=== PATIENT | female | born 1945 | race Caucasian/White ===

== ENCOUNTER → 2017-07-26 08:57 | Outpatient (CLI) | payer OTHER, SELFPAY ==
[2017-07-26 09:56] LABS: Calcium 8.8 mg/dL (8.4-10.2); Phosphorous 3.4 mg/dL (2.8-4.1)
[2017-07-26 10:19] LABS: Vitamin D 25 Hydroxy (D3) 34.4 ng/mL (30.0-100.0)
[2017-07-26 10:36] LABS: Thyroid Stimulating Hormone 0.17 uIU/mL (0.47-4.68)
== END ==
PROVIDERS: PCP Internal Medicine; Visit Provider Nurse Practitioner
DX: E03.9 Hypothyroidism, unspecified (principal); M81.0 Age-related osteoporosis without current pathological fracture
CPT/HCPCS: 36415; 82306; 82310; 84100; 84439; 84443

== ENCOUNTER → 2018-08-02 14:16 | Outpatient (CLI) | payer OTHER, SELFPAY ==
--- NOTE | 2018-08-02 14:20 | DI.RAD.S_ITS ---
PROCEDURE: XR HIP W PEL IF DONE RT 2V INDICATIONS: RIGHT HIP PAIN TECHNIQUE: 2 views of the hip were acquired. COMPARISON: None. FINDINGS: Bones: No fractures or dislocations. No suspicious bony lesions. The visualized pelvic ring appears intact. There is moderate right sacroiliac joint degeneration and mild right acetabular femoral joint degeneration. Soft tissues: No suspicious soft tissue calcifications or masses. IMPRESSION: Degenerative joint disease, moderate at the right sacroiliac joint and mild at the right acetabular femoral joint. Dictated by: Enedina Fuentes M.D. on 08/02/2018 at 16:51 Approved by: Enedina Fuentes M.D. on 08/02/2018 at 21:46
--- NOTE | 2018-08-02 14:22 | DI.RAD.S_ITS ---
PROCEDURE: XR CHEST 2V INDICATIONS: COUGH TECHNIQUE: 2 views of the chest were acquired. COMPARISON: None. FINDINGS: Surgical changes and devices: None. Lungs and pleura: Mild patchy infiltrate in right upper lobe. No pleural effusions or pneumothorax. Mediastinum: Mediastinal contours are normal. Heart size is normal. Bones and chest wall: No suspicious bony abnormalities. Soft tissues appear unremarkable. IMPRESSION: Mild patchy infiltrate in the right upper lobe suspicious for pneumonia. Dictated by: Enedina Fuentes M.D. on 08/02/2018 at 16:38 Approved by: Enedina Fuentes M.D. on 08/02/2018 at 16:39
== END ==
PROVIDERS: PCP Internal Medicine; Visit Provider Internal Medicine
DX: R05 Cough (principal); R91.8 Other nonspecific abnormal finding of lung field; M25.551 Pain in right hip; M16.11 Unilateral primary osteoarthritis, right hip; M47.818 Spondylosis without myelopathy or radiculopathy, sacral and sacrococcygeal region
CPT/HCPCS: 71046; 73502

== ENCOUNTER → 2018-08-03 07:14 | Outpatient (CLI) | payer OTHER, SELFPAY ==
[2018-08-03 09:38] LABS: Blood Urea Nitrogen 9 mg/dL (7-17); Calcium 8.4 mg/dL (8.4-10.2); Carbon Dioxide 27 mmol/L (22-32); Chloride 100 mmol/L (98-107); Cholesterol 145 mg/dL (140-199); Estimated Glomerular Filt Rate > 60.0 mL/min (>60); Glucose 94 mg/dL (80-110); HDL Cholesterol 51 mg/dL (40-60); HEMOLYSIS < 15 (0-50); LDL Cholesterol Calculated 75 mg/dL (<100); Potassium 4.6 mmol/L (3.4-5.1); Sodium 136 mmol/L (137-145); Triglycerides 96 mg/dL (35-150)
[2018-08-03 10:21] LABS: Vitamin B12 876 pg/mL (239-931)
== END ==
PROVIDERS: PCP Internal Medicine; Visit Provider Internal Medicine
DX: E53.8 Deficiency of other specified B group vitamins (principal); Z13.1 Encounter for screening for diabetes mellitus; Z13.220 Encounter for screening for lipoid disorders
CPT/HCPCS: 36415; 80048; 80061; 82607

== ENCOUNTER → 2018-11-14 09:42 | Outpatient (CLI) | payer OTHER, SELFPAY ==
[2018-11-14 11:00] LABS: BUN Creatinine Ratio 21.4 (6-22); Blood Urea Nitrogen 15 mg/dL (7-17); Calcium 9.8 mg/dL (8.4-10.2); Carbon Dioxide 30 mmol/L (22-32); Chloride 99 mmol/L (98-107); Estimated Glomerular Filt Rate > 60.0 mL/min (>60); Glucose 90 mg/dL (80-110); HEMOLYSIS < 15 (0-50); Potassium 4.8 mmol/L (3.4-5.1); Sodium 137 mmol/L (137-145)
[2018-11-14 11:26] LABS: TSH w/ Reflex to FT4 1.16 uIU/mL (0.47-4.68)
== END ==
PROVIDERS: PCP Internal Medicine; Visit Provider Internal Medicine
DX: I10 Essential (primary) hypertension (principal); E03.9 Hypothyroidism, unspecified
CPT/HCPCS: 36415; 80048; 84443

== ENCOUNTER → 2019-03-18 12:30 | Outpatient (CLI) | payer MEDICARE, SELFPAY ==
--- NOTE | 2019-03-18 | DI.US.S_ITS ---
PROCEDURE: US PERIPH VENOUS LOW EXTREM RT INDICATIONS: RIGHT CALF PAIN TECHNIQUE: Real-time imaging, as well as color and pulse Doppler interrogation, were performed of the lower extremity deep veins from the inguinal ligament to the popliteal fossa. COMPARISON: None. FINDINGS: The common femoral, femoral and popliteal veins are normally compressible, and free of intraluminal thrombus. Color and pulse Doppler demonstrate normal phasic intraluminal flow. There is normal augmentation response to distal compression maneuver. IMPRESSION: Negative for deep venous thrombosis. Dictated by: Nick Franco M.D. on 03/18/2019 at 15:09 Approved by: Nick Franco M.D. on 03/18/2019 at 15:10
== END ==
PROVIDERS: PCP Internal Medicine; Referring Provider Internal Medicine; Visit Provider Internal Medicine
DX: M79.661 Pain in right lower leg (principal)
CPT/HCPCS: 93971

== ENCOUNTER → 2019-09-25 16:39 | Outpatient (CLI) | payer MEDICARE, SELFPAY ==
--- NOTE | 2019-09-25 | DI.MG.S_ITS ---
BILATERAL DIGITAL SCREENING MAMMOGRAM 3D/2D WITH CAD: 09/25/2019 CLINICAL: Routine screening. Comparison is made to exams dated: 09/09/2016 mammogram, 01/03/2014 mammogram, and 12/21/2012 mammogram - [facility]. The tissue of both breasts is heterogeneously dense. This may lower the sensitivity of mammography. Current study was also evaluated with a Computer Aided Detection (CAD) system. No significant masses, calcifications, or other findings are seen in either breast. There has been no significant interval change. IMPRESSION: NEGATIVE There is no mammographic evidence of malignancy. A 1 year screening mammogram is recommended. This exam was interpreted at Station ID: [id number]. NOTE: For mammograms, a report in lay terms will be sent to the patient. Approximately 15% of breast malignancies will not be visualized mammographically. In the management of a palpable breast mass, a negative mammogram must not discourage biopsy of a clinically suspicious lesion. Electronically Signed By: Luna tirado/christophe:09/25/2019 16:52:55 letter sent: Normal Exam ACR BI-RADS Category 1: Negative 3341F
== END ==
PROVIDERS: PCP Internal Medicine; Referring Provider Internal Medicine; Visit Provider Internal Medicine
DX: Z12.31 Encounter for screening mammogram for malignant neoplasm of breast (principal)
CPT/HCPCS: 77063; 77067

== ENCOUNTER → 2020-10-27 10:21 | Outpatient (CLI) | payer OTHER, SELFPAY ==
--- NOTE | 2020-10-27 | DI.MG.S_ITS ---
BILATERAL DIGITAL SCREENING MAMMOGRAM 3D/2D WITH CAD: 10/27/2020 CLINICAL: Routine screening. Comparison is made to exams dated: 09/25/2019 mammogram, 09/09/2016 mammogram, and 01/03/2014 mammogram - [facility]. The tissue of both breasts is heterogeneously dense. This may lower the sensitivity of mammography. Current study was also evaluated with a Computer Aided Detection (CAD) system. No significant masses, calcifications, or other findings are seen in either breast. There has been no significant interval change. IMPRESSION: NEGATIVE There is no mammographic evidence of malignancy. A 1 year screening mammogram is recommended. This exam was interpreted at Station ID: [id number]. NOTE: For mammograms, a report in lay terms will be sent to the patient. Approximately 15% of breast malignancies will not be visualized mammographically. In the management of a palpable breast mass, a negative mammogram must not discourage biopsy of a clinically suspicious lesion. Electronically Signed By: Addi Quiroz M.D., jr/christophe:10/27/2020 10:46:37 letter sent: Normal Exam ACR BI-RADS Category 1: Negative 3341F
== END ==
PROVIDERS: PCP Internal Medicine; Referring Provider Internal Medicine; Visit Provider Internal Medicine
DX: Z12.31 Encounter for screening mammogram for malignant neoplasm of breast (principal)
CPT/HCPCS: 77063; 77067

== ENCOUNTER → 2021-10-08 10:03 | Outpatient (CLI) | payer OTHER, SELFPAY | PROVIDERS: Referring Provider Internal Medicine; Visit Provider Internal Medicine | DX: M81.0 Age-related osteoporosis without current pathological fracture (principal); M85.88 Other specified disorders of bone density and structure, other site | CPT/HCPCS: 77080 ==

== ENCOUNTER → 2021-12-07 08:37 | Outpatient (CLI) | payer OTHER, SELFPAY ==
--- NOTE | 2021-12-07 08:39 | DI.MG.S_ITS ---
BILATERAL DIGITAL SCREENING MAMMOGRAM 3D/2D WITH CAD: 12/07/2021 CLINICAL: Routine screening. Comparison is made to exams dated: 10/27/2020 mammogram, 09/25/2019 mammogram, and 09/09/2016 mammogram - [facility]. Both breasts are extremely dense, which lowers the sensitivity of mammography (category d />75% glandular tissue). Current study was also evaluated with a Computer Aided Detection (CAD) system. No significant masses, calcifications, or other findings are seen in either breast. There has been no significant interval change. IMPRESSION: NEGATIVE There is no mammographic evidence of malignancy. A 1 year screening mammogram is recommended. Based on the Tyrer Cuzick model (a risk assessment model) the patient's lifetime risk is 5.0% and her 10 year risk is 0.0%. According to the ACR, ACS, and NCCN guidelines, an annual breast MRI exam along with mammogram is recommended if the patient's lifetime risk is 20% or greater. This exam was interpreted at Station ID: [id number]. NOTE: For mammograms, a report in lay terms will be sent to the patient. Approximately 15% of breast malignancies will not be visualized mammographically. In the management of a palpable breast mass, a negative mammogram must not discourage biopsy of a clinically suspicious lesion. Electronically Signed By: Luna tirado/christophe:12/07/2021 15:07:48 letter sent: Normal Exam ACR BI-RADS Category 1: Negative 3341F
== END ==
PROVIDERS: PCP Internal Medicine; Referring Provider Internal Medicine; Visit Provider Internal Medicine
DX: Z12.31 Encounter for screening mammogram for malignant neoplasm of breast (principal)
CPT/HCPCS: 77063; 77067

== ENCOUNTER → 2022-04-09 11:06 | Outpatient (CLI) | payer OTHER, SELFPAY ==
--- NOTE | 2022-04-09 11:08 | DI.RAD.S_ITS ---
PROCEDURE: XR CHEST 2V INDICATIONS: Cough TECHNIQUE: 2 views of the chest were acquired. COMPARISON: [facility], CR, XR CHEST 2V, 08/02/2018, 14:28. FINDINGS: Surgical changes and devices: None. Lungs and pleura: There is a subtle infiltrate in the right lower lobe consistent with pneumonia.. No pleural effusions or pneumothorax. Mediastinum: Mediastinal contours are normal. Heart size is normal. Bones and chest wall: No suspicious bony abnormalities. Soft tissues appear unremarkable. IMPRESSION: Subtle infiltrate in right lower lobe consistent with an early pneumonia. Dictated by: Ivan Lowe M.D. on 04/09/2022 at 10:52 Approved by: Ivan Lowe M.D. on 04/09/2022 at 10:53
== END ==
PROVIDERS: Family Provider Internal Medicine; PCP Internal Medicine; Referring Provider Nurse Practitioner Family; Visit Provider Nurse Practitioner Family
DX: R05.9 Cough, unspecified (principal)
CPT/HCPCS: 71046

== ENCOUNTER → 2022-04-21 08:25 | Outpatient (CLI) | payer OTHER, SELFPAY ==
--- NOTE | 2022-04-21 08:27 | DI.ECHO.S_ITS ---
Version: 1 Study ID: [id number] [place] [address] Name: JUVENCIO ADAMS Study Date: 04/21/2022, 10: 19 AM HR: 52 bpm : 1945 BP: 124 / 73 mmHg Gender: Female Height: 62 in Age: 76 Years Weight: 124.002 lb BSA: 1.56 mA? Ordering: TAMERA KING Referring: TAMERA KING Clinician: MORRIS ANTONIO Reason For Study: DYSPNEA ON EXERTION History: Summary Statements Sinus bradycardia with heart rate 53-54 bpm. Normal LV size and wall thickness. Normal wall motion and LV systolic function. Ejection fraction is 60-65%. Normal chamber sizes. No significant valvular abnormalities. No prior study Procedure: A two-dimensional transthoracic echocardiogram with color flow and Doppler was performed. The study quality was technically adequate. There is no prior echocardiogram noted for this patient. The patient was in a bradycardic rhythm during the exam. Left Ventricle: Left ventricular systolic function is normal. The ejection fraction is estimated to be 60-65%. The left ventricle is normal in size and wall thickness. Right Ventricle: The right ventricle is normal in size and function. Atria: There is no Doppler evidence for an interatrial shunt. Both atria are normal in size. Mitral Valve: There is mild mitral regurgitation. The mitral valve leaflets appear mildly thickened, but open well. Aortic Valve: No aortic regurgitation is present. There is no aortic valve stenosis. The aortic valve is trileaflet. The aortic valve opens well. Tricuspid Valve: There is mild tricuspid regurgitation. The right ventricular systolic pressure is estimated to be at least 27 mmHg based on an estimated right atrial pressure of 3 mm Hg. The tricuspid valve is normal in structure and function. Pulmonic Valve: There is no pulmonic valvular regurgitation. The pulmonic valve leaflets are thin and pliable; valve motion is normal. Great Vessels: The ascending aorta is normal in size. The aortic root is normal size. The IVC is of normal diameter and collapses greater than 50% with a sniff. This suggests a low right atrial pressure of 3 mm Hg. Pericardium/ Pleura: There is no pericardial effusion. There is no pleural effusion. 2D and M-Mode Measurements and Calculations LVIDd: 4.3 cm LVOT diam: 1.70 cm LVIDs: 2.6 cm Ao root diam: 3.1 cm IVSd: 0.70 cm asc Aorta Diam: 3.0 cm LVPWd: 0.80 cm Ao Arch Diam (Prox Trans): 2.10 cm LV benson. diameter/BSA (cm/m^2): 2.8 LV sys. diameter/BSA (cm/m^2): 1.67 LA A4 area: 11.7 pump installer? RA long axis: 3.9 cm LA A2 area: 17.2 pump installer? LA length (vol): 5.2 cm LA vol: 32.8 ml LA vol index: 21.0 ml/mA? Doppler Measurements and Calculations Ao V2 max: 119.0 cm/sec LVOT Max Kirit: 102.0 cm/sec Ao V2 mean: 79.9 cm/sec LV V1 max P.2 mmHg Ao V2 VTI: 26.9 cm LV V1 VTI: 25.1 cm Ao max P.0 mmHg SV(LVOT): 57.0 ml Ao mean P.0 mmHg RANDAL(I,D): 2.12 pump installer? RANDAL(V,D): 1.95 pump installer? RANDAL indexed to BSA (cm^2/m^2): 1.36 sev ratio: 0.93 MV E max kirit: 89.1 cm/sec MV dec time: 0.23 sec MV A max kirit: 62.1 cm/sec MV E/A: 1.43 Med Peak E' Kirit: 8.0 cm/sec Lat Peak E' Kirit: 8.7 cm/sec E/e' average: 10.7 TR max kirit: 247.0 cm/sec PA mean P.00 mmHg TR max P.4 mmHg PA V2 max: 84.6 cm/sec Electronically signed by: Beata Salamanca M.D. 04/21/2022, 7: 54 PM
--- NOTE | 2022-04-21 08:27 | DI.NM.S_ITS ---
PROCEDURE: NM ADRIENNE PERF SPECT REST & STR Rest and exercise myocardial perfusion SPECT with gated imaging and ejection fraction RADIOPHARMACEUTICAL: 11.8 mCi Tc-99m sestamibi IV at rest and 26.3 mCi Tc-99m sestamibi IV at peak exercise. A [id number] was performed. INDICATIONS: Dyspnea on exertion TECHNIQUE: Radiopharmaceutical was injected at peak stress test, and also at rest. SPECT images were obtained. SPECT myocardial perfusion images were displayed in short axis, horizontal long axis, and vertical long axis views. Gated images were reviewed using Newsre[employer] software. COMPARISON: None. CARDIAC STRESS: A standard Fer[employer] treadmill exercise tolerance test was performed by the patient under the supervision of an attending staff. The patient exercised for 7 minutes and 41 seconds; 9.0 METS; functional aerobic impairment (DONNY) is -15%. Hemodynamic data: There is normal blood pressure and heart rate response to exercise stress. Maximum blood pressure 178/80. Patient achieved 89% of maximum predicted heart rate at peak exercise. Symptoms: Patient denied chest pain during exercise. EKG: No diagnostic EKG changes of ischemia; no ectopy. FINDINGS: Raw data: There is good myocardial labeling by radiotracer. No significant motion artifacts. Qgvb-hs-[id number] ratio is 0.27 (normal is less than 0.38 for sestamibi tracer, and less than 0.50 for thallium tracer). Left ventricle function: Gated images demonstrate normal left ventricle wall thickening. No segmental wall motion abnormality. No transient ischemic dilation; TID is 0.94 (normal less than 1.3). The left ventricle resting end-diastolic volume is 76 mL. Left ventricle stress ejection fraction is >75%; normal values are above 45%. Myocardial perfusion: There is normal distribution of activity in the left and right ventricular myocardium. No fixed or reversible perfusion defects. IMPRESSION: Low risk study. No evidence of exercise-induced ischemia on ECG or SPECT imaging. Normal hemodynamic response to exercise. Good exercise capacity. Hyperdynamic LV function. Dictated by: Earline Garcia D.O. on 04/21/2022 at 16:54 Approved by: Earline Garcia D.O. on 04/21/2022 at 17:00
== END ==
PROVIDERS: Family Provider Internal Medicine; PCP Internal Medicine; Referring Provider Internal Medicine; Visit Provider Internal Medicine
DX: R06.09 Other forms of dyspnea (principal); R07.9 Chest pain, unspecified; I08.1 Rheumatic disorders of both mitral and tricuspid valves
CPT/HCPCS: 78452; 93017; 93306; A9502

== ENCOUNTER 2022-04-29 08:15 | Outpatient (RCR) | payer OTHER, SELFPAY ==
--- NOTE | 2022-03-17 19:08 | PT.OPPOC ---
Physical, Occupational & Speech Therapy At [facility] Current Diagnoses Mixed incontinence (03/17/22) Unspecified urinary incontinence (03/17/22) Encounter for general adult medical examination without abnormal findings (03/17/22) Visit Care Team Role Provider Type Jesica Arreguin MD Attending Provider Physician Family Provider Primary Care Provider Referring Provider Specialty: Internal Medicine Address: Phone: Email: Plan Of Care PT-OP-T Assessment and Plan Start: 03/16/22 11:49 Freq: Status: Active Protocol: Document 03/17/22 09:57 LRN (Rec: 03/17/22 12:40 LRN [id number]) Physical Therapy Assessment Rehab Potential Rehabilitation Potential Good Evaluation Complexity Number of Personal Factors/Comorbidities 3 or More Number of Body Systems Impaired 4 or More Clinical Presentation at Evaluation Evolving Impairments Impairments Activity Tolerance,Posture,ROM ,Soft Tissue Mobility,Strength ,Transfers Other Impairments Urinary leakage. Goals Four Impairment Intermittent flowing of urine Short Term Goal (STG) Pt will improve symmetry of muscle tone in the hips and PF , and will have a stable core with MMT of hip extensors. STG Duration 04/29/22 Clinical Exercise Physiologist Goal (LTG) Decrease the intermittent flowing of urine and decrease onset of dampness feeling of underwear. LTG Duration 06/15/22 Three Impairment Urge incontinence. Impairment Urinary leakage with a strong urge with ring pessary in place. Short Term Goal (STG) Pt education in proper fluid management and review of urge deference techinique. STG Duration 03/25/22 Retirement Goal (LTG) Pt will be back at her baseline of a little urinary leaking with an urge. LTG Duration 06/15/22 Two Impairment Stress incontinence. Impairment Urinary leakage with a strong cough or sneeze with ring pessary in place. Short Term Goal (STG) Pt will be educated in proper coordination of Kegel with contraction and breathing. STG Duration 03/25/22 Retirement Goal (LTG) Pt will be back at her baseline of a little urinary leaking with a cough. LTG Duration 06/15/22 One Impairment Pt lacks appropriate self care HEP. Short Term Goal (STG) Education in proper methods for transfer with coordination of breathing, and proper vulvar/genital care. STG Duration 03/25/22 Clinical Exercise Physiologist Goal (LTG) Pt will be independent with a self care HEP of PF/core strengthening and hip ROM/ strengthening exercises. LTG Duration 06/15/22 Assessment Summary Assessment Pt is a 76 yo female who presents with mixed incontinence wearing what pt indicates is a ring pessary. The pt appears to have a pelvic, hip and core muscle imbalance resulting in intermittent variable amounts of urinary leakage. She also has Pelvic Floor (PF) weakness resulting in mixed incontinence symptoms. The pt will benefit from skilled physical therapy to work towards achieving the above stated goals. Physical Therapy Plan Frequency and Duration Frequency of Treatment 1x/Week Plan of Care Start Date 03/17/22 Plan of Care End Date 06/15/22 Therapeutic Interventions Therapeutic Interventions Home Exercise Program,Joint Mobilizations,Manual Therapy, Patient/Caregiver Education, Self-Care/Home Management,Soft Tissue Mobilization, Therapeutic Activities, Therapeutic Exercises Modalities Biofeedback,Electric Stimulation Next Visit Focus/Plan Next Note Type Treatment Note Next Visit Plan Assess bladder diary and bowel involvement with recommendations as appropriate . Strengthen PF (R>L), stretch external perineal tissue. Education: PF contractions in isolation of substitute muscles, coordination of proper breaths with ADLs, transfers, body mechanics and exercise, and proper vulvar/ genital care. HEP: Hip stretch (R ER, L IR) & strengthening of L hip ER, trunk stretches (L SB & R rot) , & core strengthening (TA, R lat trunk, Rohan paraspinals). Plan of Care Dates Plan of Care Start Date 03/17/22 Plan of Care End Date 06/15/22 Electronically Signed by: Luna Prater, PT 03/19/22 0001 If you are in agreement with this Plan of Care, please return a signed and dated copy. I have reviewed this Plan of Care and certify that the skilled therapy services above are required to meet the patient?s needs. Physician Signature Date Printed Name and Credentials Clinical Instructor Signature Printed Name and Credentials
--- NOTE | 2022-03-17 19:09 | PT.OIE ---
Current Diagnoses Mixed incontinence (03/17/22) Unspecified urinary incontinence (03/17/22) Encounter for general adult medical examination without abnormal findings (03/17/22) Past Medical History (Last Updated 09/23/20 @ 18:04 by Devaughn Frias MD) Postmenopause atrophic vaginitis Vaginal wall prolapse Visit Care Team Role Provider Type Jesica Arreguin MD Attending Provider Physician Family Provider Primary Care Provider Referring Provider Specialty: Internal Medicine Address: Phone: Email: Physical Therapy Initial Evaluation PT-OP-A Visit Information Start: 03/16/22 11:49 Freq: Status: Active Protocol: Document 03/17/22 09:57 LRN (Rec: 03/17/22 12:40 LRN [id number]) Out-Patient Physical Therapy Visit Information Visit Information Visit Type Initial Evaluation Visit Start Time 09:57 Visit Stop Time 10:45 Total Visit Minutes 50 Visit Number 1 Evaluation Information Evaluation Date 03/17/22 Precautions Precautions Osteporosis-neck of femur and femur bilaterally, 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 PT-OP-B Current Condition Start: 03/16/22 11:49 Freq: Status: Active Protocol: Document 03/17/22 09:57 LRN (Rec: 03/17/22 12:40 LRN [id number]) Current Condition History of Current Condition Onset Date 1 yr Current Complaints Unpredictable urinary leaking and dampness of pantiliner/ underwear History of Current Condition Pt reports having incontinence for past year, but has now become unpredictable in onset and volume of leakage, describing occasional flooding leakage. When having flooding has no sensation about it. She states she doesn't know whether to wear a lot of protection or a little protection. Most days she reports wearing a pantiliner and some days changes pantiliner 1-3 times. She states she has worn a pessary for 9 yrs (2013) and removes it to clean 2x/week and replaces it using Trimo-alexander, along with using Estrodal. States she has a moderate cystocele when not having pessary in. Wears pessary all the time except 2 nights a week (after cleaning). Two months ago she noticed when getting up after sitting, her bottom feels damp, but has no sensation of leaking urine. Prior Treatments and Tests Doing execises from class for urinary incontinence. Developmental History Developmental History PMH reported by pt: G2, P1. Episiotomy - 54 yrs ago (age 22) Bartholin cyst and gland removal - age 16 1st trimester - 28 yrs old. Treatment Goals Patient/Caregiver Goals Pt goal with therapy is to decrease the intermittent flowing of urine. Make sure she does Kegels correct. Control urge incontinence. Get back to baseline of leaking a little and had urge incontinence and cough incontinence. Current Functional Impairments (Reported) Functional Limitations- Recreation/ Walks [place] 2-3x/week, yoga Hobbies 2-3 x/week, weight training of UE's 1x/week. Personal Factors Other Personal Factors That May Effect Has worn a pessary for 9 yrs, Therapy/Recovery removes 2x/week to clean and replace. Episiotomy - 54 yrs ago (age 22) Bartholin cyst and gland removal - age 16 TBI 4 yrs ago. PT-OP-C Subjective Start: 03/16/22 11:49 Freq: Status: Active Protocol: Document 03/17/22 09:57 LRN (Rec: 03/17/22 12:40 LRN [id number]) Patient Questionnaires Pelvic Pain and Urgency/Frequency Patient Symptom Scale Pelvic Pain Score 7 PT-OP-I Pelvic Floor Start: 03/16/22 11:49 Freq: Status: Active Protocol: Document 03/17/22 09:57 LRN (Rec: 03/17/22 12:40 LRN [id number]) Pelvic Floor Assessment Urine Urinary Symptoms Urge Sensation,Prolapse Other Urinary Symptoms Leaks sitting or standing. Now, rarely has sensation of need to urinate. Triggers are running water and standing up. Leakage Size Large Leakage Cause Cough,Sneeze,Urge Other Leakage Causes Changing position, walking to toilet. Leaks Per Day 3 Voiding Frequency 4-6 reported, every 2-4 hrs Nocturia 1 Pads Used In 24 Hours 1-3 Urine Pad Type Panty Liner Bowel Bowel Symptoms Constipation Bowel Movement Frequency 1 [place] Stool Chart Comments types 3-4 Pelvic Clock Pelvic Clock 6-9 Atrophy Pelvic Clock 9-12 Atrophy Perineal Descent Resting Absent Bearing Absent Contraction Ability Voluntary Contraction Weak Voluntary Relaxation Moderate Manual Muscle Testing Left 1 Manual Muscle Testing Right 1 Manual Muscle Testing Anterior 0 Manual Muscle Testing Posterior 2 Muscle Endurance (Seconds) 1 Number of Quick Contractions In 10 6 Seconds Comments Pelvic Floor Comments Atrophy of R levator ani muscles. Cyst removed from possibly R side. Gapping of vaginal, Perineum tissue are red. PT-OP-J Posture/Palpation/Skin Start: 03/16/22 11:49 Freq: Status: Active Protocol: Document 03/17/22 09:57 LRN (Rec: 03/17/22 12:40 LRN [id number]) Posture Evaluation Position Standing T-Spine Posture Neutral L-Spine Posture Neutral Shoulder Posture (L) Elevated Pelvis Posture (L) Iliac Crest Superior Comments Posture Comments C-curve of spine with apex on Left. PT-OP-K Range of Motion Start: 03/16/22 11:49 Freq: Status: Active Protocol: Document 03/17/22 09:57 LRN (Rec: 03/17/22 12:40 LRN [id number]) Lumbar Spine Range of Motion Lumbar Spine Active Degrees Testing Position Standing Flexion 110 Extension 12 Rotation Left 20 Rotation Right 25 Lateral Flexion Left 10 Lateral Flexion Right 12 Comments Tight L side. Hip Goniometric Range of Motion Hip Right Passive Testing Position Supine Internal Rotation 55 External Rotation 30 Left Passive Testing Position Supine Internal Rotation 35 External Rotation 50 PT-OP-M Strength Start: 03/16/22 11:49 Freq: Status: Active Protocol: Document 03/17/22 09:57 LRN (Rec: 03/17/22 12:40 LRN [id number]) Trunk Strength Trunk Manual Muscle Testing Core Stabilization Loss of core stability with hip ext MMT Hip Strength Hip Manual Muscle Testing Right Flexion (L2) 5 Normal Extension (S1) 5 Normal Abduction 5 Normal Adduction 5 Normal External Rotation 5 Normal Internal Rotation 5 Normal Left Flexion (L2) 5 Normal Extension (S1) 5 Normal Abduction 5 Normal Adduction 5 Normal External Rotation 3 Fair Internal Rotation 5 Normal Comments Arthritic like release of knee with MMT of ER. PT-OP-Q Treatments Start: 03/16/22 11:49 Freq: Status: Active Protocol: Document 03/17/22 09:57 LRN (Rec: 03/17/22 12:40 LRN [id number]) Self-Care/Home Management Treatment Education Other Education Discussed results of evaluation, goals, and plan of care (POC). Pt agreeable to goals and POC. Pt educated in use of Bladder Diary and I/S in tracking for 1 week. Discussed use of 2 different diaries for tracking of bladder. Activities Self-Care/Home Management Activities Issued & reviewed HEP: Kegel ex's and discussed exercise of Quick Flicks, Long Holds and Aggravators. PT-OP-T Assessment and Plan Start: 03/16/22 11:49 Freq: Status: Active Protocol: Document 03/17/22 09:57 LRN (Rec: 03/17/22 12:40 LRN [id number]) Physical Therapy Assessment Rehab Potential Rehabilitation Potential Good Evaluation Complexity Number of Personal Factors/Comorbidities 3 or More Number of Body Systems Impaired 4 or More Clinical Presentation at Evaluation Evolving Impairments Impairments Activity Tolerance,Posture,ROM ,Soft Tissue Mobility,Strength ,Transfers Other Impairments Urinary leakage. Goals Four Impairment Intermittent flowing of urine Short Term Goal (STG) Pt will improve symmetry of muscle tone in the hips and PF , and will have a stable core with MMT of hip extensors. STG Duration 04/29/22 Senior Living Goal (LTG) Decrease the intermittent flowing of urine and decrease onset of dampness feeling of underwear. LTG Duration 06/15/22 Three Impairment Urge incontinence. Impairment Urinary leakage with a strong urge with ring pessary in place. Short Term Goal (STG) Pt education in proper fluid management and review of urge deference techinique. STG Duration 03/25/22 Vertical Boring Mill Operator Goal (LTG) Pt will be back at her baseline of a little urinary leaking with an urge. LTG Duration 06/15/22 Two Impairment Stress incontinence. Impairment Urinary leakage with a strong cough or sneeze with ring pessary in place. Short Term Goal (STG) Pt will be educated in proper coordination of Kegel with contraction and breathing. STG Duration 03/25/22 Vertical Boring Mill Operator Goal (LTG) Pt will be back at her baseline of a little urinary leaking with a cough. LTG Duration 06/15/22 One Impairment Pt lacks appropriate self care HEP. Short Term Goal (STG) Education in proper methods for transfer with coordination of breathing, and proper vulvar/genital care. STG Duration 03/25/22 Senior Living Goal (LTG) Pt will be independent with a self care HEP of PF/core strengthening and hip ROM/ strengthening exercises. LTG Duration 06/15/22 Assessment Summary Assessment Pt is a 76 yo female who presents with mixed incontinence wearing what pt indicates is a ring pessary. The pt appears to have a pelvic, hip and core muscle imbalance resulting in intermittent variable amounts of urinary leakage. She also has Pelvic Floor (PF) weakness resulting in mixed incontinence symptoms. The pt will benefit from skilled physical therapy to work towards achieving the above stated goals. Physical Therapy Plan Frequency and Duration Frequency of Treatment 1x/Week Plan of Care Start Date 03/17/22 Plan of Care End Date 06/15/22 Therapeutic Interventions Therapeutic Interventions Home Exercise Program,Joint Mobilizations,Manual Therapy, Patient/Caregiver Education, Self-Care/Home Management,Soft Tissue Mobilization, Therapeutic Activities, Therapeutic Exercises Modalities Biofeedback,Electric Stimulation Next Visit Focus/Plan Next Note Type Treatment Note Next Visit Plan Assess bladder diary and bowel involvement with recommendations as appropriate . Strengthen PF (R>L), stretch external perineal tissue. Education: PF contractions in isolation of substitute muscles, coordination of proper breaths with ADLs, transfers, body mechanics and exercise, and proper vulvar/ genital care. HEP: Hip stretch (R ER, L IR) & strengthening of L hip ER, trunk stretches (L SB & R rot) , & core strengthening (TA, R lat trunk, Rohan paraspinals).
--- NOTE | 2022-03-17 19:09 | PT.OPPOC ---
Physical, Occupational & Speech Therapy At [facility] Current Diagnoses Mixed incontinence (03/17/22) Unspecified urinary incontinence (03/17/22) Encounter for general adult medical examination without abnormal findings (03/17/22) Visit Care Team Role Provider Type Jesica Arreguin MD Attending Provider Physician Family Provider Primary Care Provider Referring Provider Specialty: Internal Medicine Address: Phone: Email: Plan Of Care PT-OP-T Assessment and Plan Start: 03/16/22 11:49 Freq: Status: Active Protocol: Document 03/17/22 09:57 LRN (Rec: 03/17/22 12:40 LRN [id number]) Physical Therapy Assessment Rehab Potential Rehabilitation Potential Good Evaluation Complexity Number of Personal Factors/Comorbidities 3 or More Number of Body Systems Impaired 4 or More Clinical Presentation at Evaluation Evolving Impairments Impairments Activity Tolerance,Posture,ROM ,Soft Tissue Mobility,Strength ,Transfers Other Impairments Urinary leakage. Goals Four Impairment Intermittent flowing of urine Short Term Goal (STG) Pt will improve symmetry of muscle tone in the hips and PF , and will have a stable core with MMT of hip extensors. STG Duration 04/29/22 Regional Climate Change Analyst Goal (LTG) Decrease the intermittent flowing of urine and decrease onset of dampness feeling of underwear. LTG Duration 06/15/22 Three Impairment Urge incontinence. Impairment Urinary leakage with a strong urge with ring pessary in place. Short Term Goal (STG) Pt education in proper fluid management and review of urge deference techinique. STG Duration 03/25/22 Snf Goal (LTG) Pt will be back at her baseline of a little urinary leaking with an urge. LTG Duration 06/15/22 Two Impairment Stress incontinence. Impairment Urinary leakage with a strong cough or sneeze with ring pessary in place. Short Term Goal (STG) Pt will be educated in proper coordination of Kegel with contraction and breathing. STG Duration 03/25/22 Snf Goal (LTG) Pt will be back at her baseline of a little urinary leaking with a cough. LTG Duration 06/15/22 One Impairment Pt lacks appropriate self care HEP. Short Term Goal (STG) Education in proper methods for transfer with coordination of breathing, and proper vulvar/genital care. STG Duration 03/25/22 Regional Climate Change Analyst Goal (LTG) Pt will be independent with a self care HEP of PF/core strengthening and hip ROM/ strengthening exercises. LTG Duration 06/15/22 Assessment Summary Assessment Pt is a 76 yo female who presents with mixed incontinence wearing what pt indicates is a ring pessary. The pt appears to have a pelvic, hip and core muscle imbalance resulting in intermittent variable amounts of urinary leakage. She also has Pelvic Floor (PF) weakness resulting in mixed incontinence symptoms. The pt will benefit from skilled physical therapy to work towards achieving the above stated goals. Physical Therapy Plan Frequency and Duration Frequency of Treatment 1x/Week Plan of Care Start Date 03/17/22 Plan of Care End Date 06/15/22 Therapeutic Interventions Therapeutic Interventions Home Exercise Program,Joint Mobilizations,Manual Therapy, Patient/Caregiver Education, Self-Care/Home Management,Soft Tissue Mobilization, Therapeutic Activities, Therapeutic Exercises Modalities Biofeedback,Electric Stimulation Next Visit Focus/Plan Next Note Type Treatment Note Next Visit Plan Assess bladder diary and bowel involvement with recommendations as appropriate . Strengthen PF (R>L), stretch external perineal tissue. Education: PF contractions in isolation of substitute muscles, coordination of proper breaths with ADLs, transfers, body mechanics and exercise, and proper vulvar/ genital care. HEP: Hip stretch (R ER, L IR) & strengthening of L hip ER, trunk stretches (L SB & R rot) , & core strengthening (TA, R lat trunk, Rohan paraspinals). Plan of Care Dates Plan of Care Start Date 03/17/22 Plan of Care End Date 06/15/22 Electronically Signed by: Luna Prater, PT 03/19/22 [id number] If you are in agreement with this Plan of Care, please return a signed and dated copy. I have reviewed this Plan of Care and certify that the skilled therapy services above are required to meet the patient?s needs. Physician Signature Date Printed Name and Credentials Clinical Instructor Signature Printed Name and Credentials
--- NOTE | 2022-03-24 16:36 | PT.OTN ---
Current Diagnoses Mixed incontinence (03/24/22) Unspecified urinary incontinence (03/24/22) Encounter for general adult medical examination without abnormal findings (03/24/22) Physical Therapy Treatment Note PT-OP-A Visit Information Start: 03/16/22 11:49 Freq: Status: Active Protocol: Document 03/24/22 09:48 LRN (Rec: 03/24/22 10:35 LRN [id number]) Out-Patient Physical Therapy Visit Information Visit Information Visit Type Treatment Note Visit Start Time 09:48 Visit Stop Time 10:31 Total Visit Minutes 43 Visit Number 2 Evaluation Information Evaluation Date 03/17/22 Precautions Precautions Osteporosis-neck of femur and femur bilaterally, 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 PT-OP-B Current Condition Start: 03/16/22 11:49 Freq: Status: Active Protocol: Document 03/17/22 09:57 LRN (Rec: 03/17/22 12:40 LRN [id number]) Current Condition History of Current Condition Onset Date 1 yr Current Complaints Unpredictable urinary leaking and dampness of pantiliner/ underwear History of Current Condition Pt reports having incontinence for past year, but has now become unpredictable in onset and volume of leakage, describing occasional flooding leakage. When having flooding has no sensation about it. She states she doesn't know whether to wear a lot of protection or a little protection. Most days she reports wearing a pantiliner and some days changes pantiliner 1-3 times. She states she has worn a pessary for 9 yrs (2013) and removes it to clean 2x/week and replaces it using Trimo-alexander, along with using Estrodal. States she has a moderate cystocele when not having pessary in. Wears pessary all the time except 2 nights a week (after cleaning). Two months ago she noticed when getting up after sitting, her bottom feels damp, but has no sensation of leaking urine. Prior Treatments and Tests Doing execises from class for urinary incontinence. Developmental History Developmental History PMH reported by pt: G2, P1. Episiotomy - 54 yrs ago (age 22) Bartholin cyst and gland removal - age 16 1st trimester - 28 yrs old. Treatment Goals Patient/Caregiver Goals Pt goal with therapy is to decrease the intermittent flowing of urine. Make sure she does Kegels correct. Control urge incontinence. Get back to baseline of leaking a little and had urge incontinence and cough incontinence. Current Functional Impairments (Reported) Functional Limitations- Recreation/ Walks [place] 2-3x/week, yoga Hobbies 2-3 x/week, weight training of UE's 1x/week. Personal Factors Other Personal Factors That May Effect Has worn a pessary for 9 yrs, Therapy/Recovery removes 2x/week to clean and replace. Episiotomy - 54 yrs ago (age 22) Bartholin cyst and gland removal - age 16 TBI 4 yrs ago. PT-OP-C Subjective Start: 03/16/22 11:49 Freq: Status: Active Protocol: Document 03/24/22 09:48 LRN (Rec: 03/24/22 10:35 LRN [id number]) OP-PT Subjective Patient Comments Patient Comments Did bladder dairy. Notes she is urinating more than she thought she was. Kegels are hard to work into her time, especially long holds. Slept for 9 hrs one night because got a new mattress and takes a tylenol for a month now. PT-OP-I Pelvic Floor Start: 03/16/22 11:49 Freq: Status: Active Protocol: Document 03/17/22 09:57 LRN (Rec: 03/17/22 12:40 LRN [id number]) Pelvic Floor Assessment Urine Urinary Symptoms Urge Sensation,Prolapse Other Urinary Symptoms Leaks sitting or standing. Now, rarely has sensation of need to urinate. Triggers are running water and standing up. Leakage Size Large Leakage Cause Cough,Sneeze,Urge Other Leakage Causes Changing position, walking to toilet. Leaks Per Day 3 Voiding Frequency 4-6 reported, every 2-4 hrs Nocturia 1 Pads Used In 24 Hours 1-3 Urine Pad Type Panty Liner Bowel Bowel Symptoms Constipation Bowel Movement Frequency 1 [place] Stool Chart Comments types 3-4 Pelvic Clock Pelvic Clock 6-9 Atrophy Pelvic Clock 9-12 Atrophy Perineal Descent Resting Absent Bearing Absent Contraction Ability Voluntary Contraction Weak Voluntary Relaxation Moderate Manual Muscle Testing Left 1 Manual Muscle Testing Right 1 Manual Muscle Testing Anterior 0 Manual Muscle Testing Posterior 2 Muscle Endurance (Seconds) 1 Number of Quick Contractions In 10 6 Seconds Comments Pelvic Floor Comments Atrophy of R levator ani muscles. Cyst removed from possibly R side. Gapping of vaginal, Perineum tissue are red. PT-OP-J Posture/Palpation/Skin Start: 03/16/22 11:49 Freq: Status: Active Protocol: Document 03/17/22 09:57 LRN (Rec: 03/17/22 12:40 LRN [id number]) Posture Evaluation Position Standing T-Spine Posture Neutral L-Spine Posture Neutral Shoulder Posture (L) Elevated Pelvis Posture (L) Iliac Crest Superior Comments Posture Comments C-curve of spine with apex on Left. PT-OP-K Range of Motion Start: 03/16/22 11:49 Freq: Status: Active Protocol: Document 03/17/22 09:57 LRN (Rec: 03/17/22 12:40 LRN [id number]) Lumbar Spine Range of Motion Lumbar Spine Active Degrees Testing Position Standing Flexion 110 Extension 12 Rotation Left 20 Rotation Right 25 Lateral Flexion Left 10 Lateral Flexion Right 12 Comments Tight L side. Hip Goniometric Range of Motion Hip Right Passive Testing Position Supine Internal Rotation 55 External Rotation 30 Left Passive Testing Position Supine Internal Rotation 35 External Rotation 50 PT-OP-M Strength Start: 03/16/22 11:49 Freq: Status: Active Protocol: Document 03/17/22 09:57 LRN (Rec: 03/17/22 12:40 LRN [id number]) Trunk Strength Trunk Manual Muscle Testing Core Stabilization Loss of core stability with hip ext MMT Hip Strength Hip Manual Muscle Testing Right Flexion (L2) 5 Normal Extension (S1) 5 Normal Abduction 5 Normal Adduction 5 Normal External Rotation 5 Normal Internal Rotation 5 Normal Left Flexion (L2) 5 Normal Extension (S1) 5 Normal Abduction 5 Normal Adduction 5 Normal External Rotation 3 Fair Internal Rotation 5 Normal Comments Arthritic like release of knee with MMT of ER. PT-OP-Q Treatments Start: 03/16/22 11:49 Freq: Status: Active Protocol: Document 03/24/22 09:48 LRN (Rec: 03/24/22 10:35 LRN [id number]) Therapeutic Exercises Supine Exercises Deep Breathing Supine Exercise Name Deep Breathing training Reps/Minutes 10' Comments Much phy & v cuing and self phy duing Self-Care/Home Management Treatment Education Other Education Pt education and review of urge deference techinique. Reviewed Bladder dairy and discussed fluid intake/ management (AM/PM), bowel movement frequency, & nighttime voiding frequency. Pt lengthy education and discussion in Urinary urge technique with handout issued. Pt educated in proper coordination of Kegel with contraction and breathing. Discussed at length pt triggers and use of delay technique to reduce urgency with triggers. Activities Self-Care/Home Management Activities I/S pt in deep breathing for 6 sec breaths and proper coordination of breathing. Pt to use urinary delay technique on triggers and urgency delay. Recommended pt use double pany wear going to restaurant to determine if leaking or perspiration is reason for dampness of panty. PT-OP-T Assessment and Plan Start: 03/16/22 11:49 Freq: Status: Active Protocol: Document 03/24/22 09:48 LRN (Rec: 03/24/22 10:35 LRN [id number]) Physical Therapy Assessment Goals Four Impairment Intermittent flowing of urine Short Term Goal (STG) Pt will improve symmetry of muscle tone in the hips and PF , and will have a stable core with MMT of hip extensors. STG Duration 04/29/22 Soft Boarder Goal (LTG) Decrease the intermittent flowing of urine and decrease onset of dampness feeling of underwear. LTG Duration 06/15/22 Three Impairment Urge incontinence. Impairment Urinary leakage with a strong urge with ring pessary in place. Short Term Goal (STG) Pt education in proper fluid management and review of urge deference techinique. STG Duration 03/25/22 (03/24/22: MET GOAL) Senior Care Goal (LTG) Pt will be back at her baseline of a little urinary leaking with an urge. LTG Duration 06/15/22 Two Impairment Stress incontinence. Impairment Urinary leakage with a strong cough or sneeze with ring pessary in place. Short Term Goal (STG) Pt will be educated in proper coordination of Kegel with contraction and breathing. 02/21/22: Pt educated in proper deep breathing. STG Duration 03/25/22 (03/24/22: progressed) Soft Boarder Goal (LTG) Pt will be back at her baseline of a little urinary leaking with a cough. LTG Duration 06/15/22 One Impairment Pt lacks appropriate self care HEP. Short Term Goal (STG) Education in proper methods for transfer with coordination of breathing, and proper vulvar/genital care. STG Duration 03/25/22 Senior Care Goal (LTG) Pt will be independent with a self care HEP of PF/core strengthening and hip ROM/ strengthening exercises. LTG Duration 06/15/22 Assessment Summary Assessment Pt was very receptive to education and training of PF ( urinary delay technique) after bladder diary review. Pt is drinking a good amount of non- caffeinated fluids and her BM' s are daily and normal. She appears to urinary weakness due to waiting too long to void and had quite a few times leakage occuring at nighttime voids, and leakage with walking her dog is probably due to stress incontinence. The pt also has triggers that result in urge incontinence. Pt behavioral change is expected to be helpful, using urinary delay technique once she improves her deep breathing coordinatioin and PF strength. She has shallow breaths of equal chest/ abdominal breathing. Pt learned quickly to deep breath mostly properly. PF strengthening throughout her day is needed. Unknown dampness of underwear on standing (while at restaurant) is urine or perspiration, pt to monitor more closely. Physical Therapy Plan Frequency and Duration Frequency of Treatment 1x/Week Plan of Care Start Date 03/17/22 Plan of Care End Date 06/15/22 Next Visit Focus/Plan Next Note Type Treatment Note Next Visit Plan Strengthen PF (R>L), stretch external perineal tissue. Education: PF contractions in isolation of substitute muscles, coordination of proper breaths with ADLs, transfers, body mechanics and exercise, and proper vulvar/ genital care. HEP: Hip stretch (R ER, L IR) & strengthening of L hip ER, trunk stretches (L SB & R rot) , & core strengthening (TA, R lat trunk, Rohan paraspinals). Monitor if dampness after standing at restaurant is urine or perspiration.
--- NOTE | 2022-03-31 14:14 | PT.OTN ---
Current Diagnoses Mixed incontinence (03/31/22) Unspecified urinary incontinence (03/31/22) Encounter for general adult medical examination without abnormal findings (03/31/22) Physical Therapy Treatment Note PT-OP-A Visit Information Start: 03/16/22 11:49 Freq: Status: Active Protocol: Document 03/31/22 09:50 LRN (Rec: 03/31/22 11:06 LRN [id number]) Out-Patient Physical Therapy Visit Information Visit Information Visit Type Treatment Note Visit Start Time 09:50 Visit Stop Time 10:30 Total Visit Minutes 40 Visit Number 3 Evaluation Information Evaluation Date 03/17/22 Precautions Precautions Osteporosis-neck of femur and femur bilaterally, 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 PT-OP-B Current Condition Start: 03/16/22 11:49 Freq: Status: Active Protocol: Document 03/17/22 09:57 LRN (Rec: 03/17/22 12:40 LRN [id number]) Current Condition History of Current Condition Onset Date 1 yr Current Complaints Unpredictable urinary leaking and dampness of pantiliner/ underwear History of Current Condition Pt reports having incontinence for past year, but has now become unpredictable in onset and volume of leakage, describing occasional flooding leakage. When having flooding has no sensation about it. She states she doesn't know whether to wear a lot of protection or a little protection. Most days she reports wearing a pantiliner and some days changes pantiliner 1-3 times. She states she has worn a pessary for 9 yrs (2013) and removes it to clean 2x/week and replaces it using Trimo-alexander, along with using Estrodal. States she has a moderate cystocele when not having pessary in. Wears pessary all the time except 2 nights a week (after cleaning). Two months ago she noticed when getting up after sitting, her bottom feels damp, but has no sensation of leaking urine. Prior Treatments and Tests Doing execises from class for urinary incontinence. Developmental History Developmental History PMH reported by pt: G2, P1. Episiotomy - 54 yrs ago (age 22) Bartholin cyst and gland removal - age 16 1st trimester - 28 yrs old. Treatment Goals Patient/Caregiver Goals Pt goal with therapy is to decrease the intermittent flowing of urine. Make sure she does Kegels correct. Control urge incontinence. Get back to baseline of leaking a little and had urge incontinence and cough incontinence. Current Functional Impairments (Reported) Functional Limitations- Recreation/ Walks [place] 2-3x/week, yoga Hobbies 2-3 x/week, weight training of UE's 1x/week. Personal Factors Other Personal Factors That May Effect Has worn a pessary for 9 yrs, Therapy/Recovery removes 2x/week to clean and replace. Episiotomy - 54 yrs ago (age 22) Bartholin cyst and gland removal - age 16 TBI 4 yrs ago. PT-OP-C Subjective Start: 03/16/22 11:49 Freq: Status: Active Protocol: Document 03/31/22 09:50 LRN (Rec: 03/31/22 11:06 LRN [id number]) OP-PT Subjective Patient Comments Patient Comments States she has been practicing her breathing. Notices that she is now paying attention to her first urge and before she wasn't. PT-OP-I Pelvic Floor Start: 03/16/22 11:49 Freq: Status: Active Protocol: Document 03/17/22 09:57 LRN (Rec: 03/17/22 12:40 LRN [id number]) Pelvic Floor Assessment Urine Urinary Symptoms Urge Sensation,Prolapse Other Urinary Symptoms Leaks sitting or standing. Now, rarely has sensation of need to urinate. Triggers are running water and standing up. Leakage Size Large Leakage Cause Cough,Sneeze,Urge Other Leakage Causes Changing position, walking to toilet. Leaks Per Day 3 Voiding Frequency 4-6 reported, every 2-4 hrs Nocturia 1 Pads Used In 24 Hours 1-3 Urine Pad Type Panty Liner Bowel Bowel Symptoms Constipation Bowel Movement Frequency 1 Schleicher Stool Chart Comments types 3-4 Pelvic Clock Pelvic Clock 6-9 Atrophy Pelvic Clock 9-12 Atrophy Perineal Descent Resting Absent Bearing Absent Contraction Ability Voluntary Contraction Weak Voluntary Relaxation Moderate Manual Muscle Testing Left 1 Manual Muscle Testing Right 1 Manual Muscle Testing Anterior 0 Manual Muscle Testing Posterior 2 Muscle Endurance (Seconds) 1 Number of Quick Contractions In 10 6 Seconds Comments Pelvic Floor Comments Atrophy of R levator ani muscles. Cyst removed from possibly R side. Gapping of vaginal, Perineum tissue are red. PT-OP-J Posture/Palpation/Skin Start: 03/16/22 11:49 Freq: Status: Active Protocol: Document 03/17/22 09:57 LRN (Rec: 03/17/22 12:40 LRN [id number]) Posture Evaluation Position Standing T-Spine Posture Neutral L-Spine Posture Neutral Shoulder Posture (L) Elevated Pelvis Posture (L) Iliac Crest Superior Comments Posture Comments C-curve of spine with apex on Left. PT-OP-K Range of Motion Start: 03/16/22 11:49 Freq: Status: Active Protocol: Document 03/17/22 09:57 LRN (Rec: 03/17/22 12:40 LRN [id number]) Lumbar Spine Range of Motion Lumbar Spine Active Degrees Testing Position Standing Flexion 110 Extension 12 Rotation Left 20 Rotation Right 25 Lateral Flexion Left 10 Lateral Flexion Right 12 Comments Tight L side. Hip Goniometric Range of Motion Hip Right Passive Testing Position Supine Internal Rotation 55 External Rotation 30 Left Passive Testing Position Supine Internal Rotation 35 External Rotation 50 PT-OP-M Strength Start: 03/16/22 11:49 Freq: Status: Active Protocol: Document 03/17/22 09:57 LRN (Rec: 03/17/22 12:40 LRN [id number]) Trunk Strength Trunk Manual Muscle Testing Core Stabilization Loss of core stability with hip ext MMT Hip Strength Hip Manual Muscle Testing Right Flexion (L2) 5 Normal Extension (S1) 5 Normal Abduction 5 Normal Adduction 5 Normal External Rotation 5 Normal Internal Rotation 5 Normal Left Flexion (L2) 5 Normal Extension (S1) 5 Normal Abduction 5 Normal Adduction 5 Normal External Rotation 3 Fair Internal Rotation 5 Normal Comments Arthritic like release of knee with MMT of ER. PT-OP-Q Treatments Start: 03/16/22 11:49 Freq: Status: Active Protocol: Document 03/31/22 09:50 LRN (Rec: 03/31/22 11:06 LRN [id number]) Therapeutic Exercises Supine Exercises Deep Breathing Supine Exercise Name Deep Breathing training Reps/Minutes 8' Comments Much phy & v cuing and self phy duing Prone Exercises Abdominal stretch Prone Exercise Name Press ups on hands - 6 breaths Reps/Minutes 6 breath holds, 2x - 6' Sitting Exercises Sit<>Supine Sitting Exercise Name Sit<>Supine for breathe/PF tightening. Reps/Minutes 13' Standing Exercises PF/Hamstring stretch position Standing Exercise Name PF contract in Hamstring stretch position Reps/Minutes 10 SH x 2, 2' Self-Care/Home Management Treatment Education Other Education Review of Bladder Diary with recommendations to tighten PF prior to standing. Discussed fluid intake okay for decaf drinks and reviewed times between voiding norms. PT-OP-T Assessment and Plan Start: 03/16/22 11:49 Freq: Status: Active Protocol: Document 03/31/22 09:50 LRN (Rec: 03/31/22 11:06 LRN [id number]) Physical Therapy Assessment Goals Four Impairment Intermittent flowing of urine Short Term Goal (STG) Pt will improve symmetry of muscle tone in the hips and PF , and will have a stable core with MMT of hip extensors. STG Duration 04/29/22 Alf Goal (LTG) Decrease the intermittent flowing of urine and decrease onset of dampness feeling of underwear. LTG Duration 06/15/22 Three Impairment Urge incontinence. Impairment Urinary leakage with a strong urge with ring pessary in place. Short Term Goal (STG) Pt education in proper fluid management and review of urge deference techinique. STG Duration 03/25/22 (03/24/22: MET GOAL) Brokerage Office Manager Goal (LTG) Pt will be back at her baseline of a little urinary leaking with an urge. LTG Duration 06/15/22 Two Impairment Stress incontinence. Impairment Urinary leakage with a strong cough or sneeze with ring pessary in place. Short Term Goal (STG) Pt will be educated in proper coordination of Kegel with contraction and breathing. 02/21/22: Pt educated in proper deep breathing. 03/31/22: Initiated Kegel w/ transfer/breath STG Duration 03/25/22 progressed 03/31/22 Brokerage Office Manager Goal (LTG) Pt will be back at her baseline of a little urinary leaking with a cough. LTG Duration 06/15/22 One Impairment Pt lacks appropriate self care HEP. Short Term Goal (STG) Education in proper methods for transfer with coordination of breathing, and proper vulvar/genital care. 03/31/22: Pt educated in proper method for transfer sit <>stand w/coordination of breathing. STG Duration 03/25/22 progressing 03/31/22 Brokerage Office Manager Goal (LTG) Pt will be independent with a self care HEP of PF/core strengthening and hip ROM/ strengthening exercises. LTG Duration 06/15/22 Assessment Summary Assessment Per bladder diary review, pt is leaking at night or in morning after getting OOB or after sitting on her rocking chair cushion; due to weakness and possibly from too soft surface of cushion. Pt perineum not as tight. Weakness of PF, lateral sides are the weakest. Physical Therapy Plan Frequency and Duration Frequency of Treatment 1x/Week Plan of Care Start Date 03/17/22 Plan of Care End Date 06/15/22 Next Visit Focus/Plan Next Note Type Treatment Note Next Visit Plan Assess response to PF strengthening with transfers and breath. Discuss sitting posture on rocker and recommend removal of cushion to something a little more firm. Strengthen PF (R>L) latteral mullen. Assess coordination of proper breaths with ADLs, transfers, body mechanics and exercise Education: proper vulvar/ genital care. HEP: Hip stretch (R ER, L IR) & strengthening of L hip ER, trunk stretches (L SB & R rot) , & core strengthening (TA, R lat trunk, Rohan paraspinals). Monitor if dampness after standing at restaurant is urine or perspiration.
--- NOTE | 2022-04-29 16:46 | PT.OTN ---
Current Diagnoses Mixed incontinence (04/29/22) Unspecified urinary incontinence (04/29/22) Encounter for general adult medical examination without abnormal findings (04/29/22) Physical Therapy Treatment Note PT-OP-A Visit Information Start: 03/16/22 11:49 Freq: Status: Active Protocol: Document 04/29/22 08:17 LRN (Rec: 04/29/22 09:05 LRN [id number]) Out-Patient Physical Therapy Visit Information Visit Information Visit Type Treatment Note Visit Start Time 08:17 Visit Stop Time 09:03 Total Visit Minutes 46 Visit Number 4 Evaluation Information Evaluation Date 03/17/22 Precautions Precautions Osteporosis-neck of femur and femur bilaterally, 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 PT-OP-B Current Condition Start: 03/16/22 11:49 Freq: Status: Active Protocol: Document 03/17/22 09:57 LRN (Rec: 03/17/22 12:40 LRN [id number]) Current Condition History of Current Condition Onset Date 1 yr Current Complaints Unpredictable urinary leaking and dampness of pantiliner/ underwear History of Current Condition Pt reports having incontinence for past year, but has now become unpredictable in onset and volume of leakage, describing occasional flooding leakage. When having flooding has no sensation about it. She states she doesn't know whether to wear a lot of protection or a little protection. Most days she reports wearing a pantiliner and some days changes pantiliner 1-3 times. She states she has worn a pessary for 9 yrs (2013) and removes it to clean 2x/week and replaces it using Trimo-alexander, along with using Estrodal. States she has a moderate cystocele when not having pessary in. Wears pessary all the time except 2 nights a week (after cleaning). Two months ago she noticed when getting up after sitting, her bottom feels damp, but has no sensation of leaking urine. Prior Treatments and Tests Doing execises from class for urinary incontinence. Developmental History Developmental History PMH reported by pt: G2, P1. Episiotomy - 54 yrs ago (age 22) Bartholin cyst and gland removal - age 16 1st trimester - 28 yrs old. Treatment Goals Patient/Caregiver Goals Pt goal with therapy is to decrease the intermittent flowing of urine. Make sure she does Kegels correct. Control urge incontinence. Get back to baseline of leaking a little and had urge incontinence and cough incontinence. Current Functional Impairments (Reported) Functional Limitations- Recreation/ Walks [place] 2-3x/week, yoga Hobbies 2-3 x/week, weight training of UE's 1x/week. Personal Factors Other Personal Factors That May Effect Has worn a pessary for 9 yrs, Therapy/Recovery removes 2x/week to clean and replace. Episiotomy - 54 yrs ago (age 22) Bartholin cyst and gland removal - age 16 TBI 4 yrs ago. PT-OP-C Subjective Start: 03/16/22 11:49 Freq: Status: Active Protocol: Document 04/29/22 08:17 LRN (Rec: 04/29/22 09:05 LRN [id number]) OP-PT Subjective Patient Comments Patient Comments Got a bactierial respiratory infection and required 2 antibiotics over 3 wks, then had compulsive coughing for 3 days and had urinary incontinence and was not able to think about doing a Kegel before coughing, so now feels good. Has slight leaks sometimes in the afternoon. She has been doing Kegels with exhaling. Not having leakage with a cough because doing a Kegel before coughing. Once last week felt dampness of underwear, so not happening as often as it has. Patient Questionnaires Pelvic Pain and Urgency/Frequency Patient Symptom Scale Pelvic Pain Score 5 PT-OP-I Pelvic Floor Start: 03/16/22 11:49 Freq: Status: Active Protocol: Document 04/29/22 08:17 LRN (Rec: 04/29/22 09:05 LRN [id number]) Pelvic Floor Assessment Pelvic Clock Pelvic Clock 6-9 Atrophy Pelvic Clock 9-12 Atrophy Prolapse Prolapse Comments Perineum tissues show increased redness. Atrophy of R levator ani muscles. Vaginal gapping. Contraction Ability Voluntary Contraction Weak Voluntary Relaxation Moderate Manual Muscle Testing Left 2 Manual Muscle Testing Right 1 Manual Muscle Testing Anterior 2 Manual Muscle Testing Posterior 3 Muscle Endurance (Seconds) 10 Number of Quick Contractions In 10 10 Seconds Comments Pelvic Floor Comments PF muscle endurance is 10 sec long, except not felt on R side. PF Quick muscle contractions is 5x in 10 secs except not felt on R side. Posterior PF - 10 quick contractions felt. PT-OP-J Posture/Palpation/Skin Start: 03/16/22 11:49 Freq: Status: Active Protocol: Document 03/17/22 09:57 LRN (Rec: 03/17/22 12:40 LRN [id number]) Posture Evaluation Position Standing T-Spine Posture Neutral L-Spine Posture Neutral Shoulder Posture (L) Elevated Pelvis Posture (L) Iliac Crest Superior Comments Posture Comments C-curve of spine with apex on Left. PT-OP-K Range of Motion Start: 03/16/22 11:49 Freq: Status: Active Protocol: Document 04/29/22 08:17 LRN (Rec: 04/29/22 09:05 LRN [id number]) Hip Goniometric Range of Motion Hip Right Passive Testing Position Supine Internal Rotation 35 External Rotation 55 Left Passive Internal Rotation 30 External Rotation 65 PT-OP-M Strength Start: 03/16/22 11:49 Freq: Status: Active Protocol: Document 03/17/22 09:57 LRN (Rec: 03/17/22 12:40 LRN [id number]) Trunk Strength Trunk Manual Muscle Testing Core Stabilization Loss of core stability with hip ext MMT Hip Strength Hip Manual Muscle Testing Right Flexion (L2) 5 Normal Extension (S1) 5 Normal Abduction 5 Normal Adduction 5 Normal External Rotation 5 Normal Internal Rotation 5 Normal Left Flexion (L2) 5 Normal Extension (S1) 5 Normal Abduction 5 Normal Adduction 5 Normal External Rotation 3 Fair Internal Rotation 5 Normal Comments Arthritic like release of knee with MMT of ER. PT-OP-Q Treatments Start: 03/16/22 11:49 Freq: Status: Active Protocol: Document 04/29/22 08:17 LRN (Rec: 04/29/22 09:05 LRN [id number]) Therapeutic Exercises Supine Exercises Kegels Supine Exercise Name Quick & Long holds roscoe and for R side Reps/Minutes 20' Bridge review Supine Exercise Name Bridge review for PF long hold and glut strenghtening Reps/Minutes 2' Sitting Exercises Sit<>Stand Sitting Exercise Name Sit<>Stand for breathe/PF tightening. Reps/Minutes 4' Sit<>Supine Sitting Exercise Name Sit<>Supine for breathe/PF tightening. Reps/Minutes 8' Standing Exercises PF/Hamstring stretch position Standing Exercise Name Reviewed PF contract in Hamstring stretch position Reps/Minutes 5' Self-Care/Home Management Treatment Education Other Education Discussed & reviewed pt's current condition and goals. Discussed Genital hygiene and general vulvar care. Discussed method to decrease irritation of perineum with use of panty and pad underneath. Activities Self-Care/Home Management Activities Issued and briefly reviewed handouts for Genital hygiene and general vulvar care. PT-OP-T Assessment and Plan Start: 03/16/22 11:49 Freq: Status: Active Protocol: Document 04/29/22 08:17 LRN (Rec: 04/29/22 09:05 LRN [id number]) Physical Therapy Assessment Goals Four Impairment Intermittent flowing of urine Short Term Goal (STG) Pt will improve symmetry of muscle tone in the hips and PF , and will have a stable core with MMT of hip extensors. 04/29/22: Improved symmetry of hip ms tone. STG Duration 04/29/22 (04/29/22: MET GOAL) Children Teacher Goal (LTG) Decrease the intermittent flowing of urine and decrease onset of dampness feeling of underwear. 04/29/22: Pt reports no urinary leakage, pt has felt it only once last week. LTG Duration 06/15/22 (04/29/22: MET GOAL) Three Impairment Urge incontinence. Impairment Urinary leakage with a strong urge with ring pessary in place. Short Term Goal (STG) Pt education in proper fluid management and review of urge deference techinique. STG Duration 03/25/22 (03/24/22: MET GOAL) Nursing Home Goal (LTG) Pt will be back at her baseline of a little urinary leaking with an urge. 04/29/22: Pt feels she is back at baseline of urinary leakage with an urge, but is not leaking when coming into her garage with an urge. LTG Duration 06/15/22 (04/29/22: MET GOAL) Two Impairment Stress incontinence. Impairment Urinary leakage with a strong cough or sneeze with ring pessary in place. Short Term Goal (STG) Pt will be educated in proper coordination of Kegel with contraction and breathing. 02/21/22: Pt educated in proper deep breathing. 03/31/22: Initiated Kegel w/ transfer/breath 04/29/22: Pt reports she has done Kegels with exhale. STG Duration 03/25/22 (05/30/22: MET GOAL ) Children Teacher Goal (LTG) Pt will be back at her baseline of a little urinary leaking with a cough. 04/29/22: No leakage with a cough because doing a Kegel before coughing. LTG Duration 06/15/22 (04/29/22: MET GOAL) One Impairment Pt lacks appropriate self care HEP. Short Term Goal (STG) Education in proper methods for transfer with coordination of breathing, and proper vulvar/genital care. 03/31/22: Pt educated in proper method for transfer sit <>stand w/coordination of breathing. 04/29/22: Educated and discussed genital hygiene and general vulvar care. STG Duration 03/25/22 (04/29/22: MET GOAL ) Children Teacher Goal (LTG) Pt will be independent with a self care HEP of PF/core strengthening and hip ROM/ strengthening exercises. LTG Duration 06/15/22 (04/29/22: MET GOAL) Assessment Summary Assessment Pt attends therapy after a month absence due to illness followed by a 3 day episode of coughing resulting in her now feeling much better as she has incorporated PF strengthening ex's into her daily routine. She is slightly leaking sometimes in the afternoon and for the past week has had only 1 episode of feeling dampness in her underwear after prolonged sitting. The pt doesn't see leakage but just has dampness . Further assessment as to if the dampness is urine or sweat would be helpful in determining if there is further PF issues the pt would need PF rehab to address at a later date. PUF score shows improvement from 7 to 5, and all other pt goals have been achieved. The pt is ready for discharge to her HEP; therefore the pt will be discharged from therapy today. Physical Therapy Plan Discharge Physical Therapy Discharge Reasons Goals Met Discharge Comments Pt has weakness of lateral mullen (R>L) and her feeling of dampness is still present. She was not able to attend all her therapy appointments due to illness; therefore she could benefit from therapy in the future to address hip and trunk mobility/strength asymmetry.
== END 2022-05-02 11:03 | disposition home or self-care (01) ==
LOC: PHYS 08:15
PROVIDERS: Absent Provider Internal Medicine; Family Provider Internal Medicine; PCP Internal Medicine; Referring Provider Internal Medicine; Visit Provider Internal Medicine
DX: Z00.00 Encounter for general adult medical examination without abnormal findings (principal); R32 Unspecified urinary incontinence; N39.46 Mixed incontinence
CPT/HCPCS: 97110; 97162; 97535

== ENCOUNTER 2023-08-20 08:36 | Emergency (ER) | payer MEDICARE, SELFPAY ==
[2023-08-20] VITALS (7 sets, daily range): BP systolic 126–157; BP diastolic 61–70; PULSE 61–72; RESP 16–28; TEMP 36.8–36.9; O2SAT 98–100; BMI 22.3
--- NOTE | 2023-08-20 08:50 | ED_ITS ---
HPI - General Adult General Chief complaint: Weakness Stated complaint: low bp, poss uti Time Seen by Provider: 08/20/23 08:37 Source: patient Mode of arrival: Ambulatory Limitations: no limitations History of Present Illness HPI narrative: 78-year-old female here for evaluation of a concern for UTI. She states that last evening she had some generalized abdominal pain which is now in the left lower quadrant. She also states that she had some burning with urination this morning. She also states she feels ?wiped? feels like she was having hot flashes. Took her blood pressure this morning because she was feeling faint and had 3 readings that had a systolic blood pressure less than 100. She does have a history of high blood pressure. She denies chest pain or shortness of breath. No diarrhea. She did vomit 1 time this morning but is no longer feeling nauseous. Related Data Home Medications Medication Instructions Recorded Confirmed denosumab 60 mg/mL subcutaneous 60 mg SQ ##0 12/08/16 10/24/17 syringe (Prolia) amlodipine 5 mg tablet 5 mg PO DAILY 09/23/20 09/23/20 cholecalciferol (vitamin D3) 50 50 mcg PO DAILY 09/23/20 09/23/20 mcg (2,000 unit) capsule cyanocobalamin (vitamin B-12) 1,000 mcg PO DAILY 09/23/20 09/23/20 1,000 mcg capsule levothyroxine 25 mcg tablet 100 mcg PO DAILY 09/23/20 09/23/20 sodium chloride 2 % eye drops drp EYE-BOTH BID 09/23/20 09/23/20 (Trey 128) sodium chloride 5 % eye ointment EYE-BOTH ONCE 09/23/20 09/23/20 (Trey 128) Previous Rx's Medication Instructions Recorded meclizine 25 mg tablet 25 mg PO Q6HP PRN #20 tabs 12/08/16 estradiol 0.01% (0.1 mg/gram) 1 g vaginal 2XW #2 tubes 09/23/20 vaginal cream benzonatate 100 mg capsule 100 mg PO BID PRN cough #20 caps 04/09/22 estradiol 0.01% (0.1 mg/gram) 1 g vaginal 2XW #85 grams 01/20/23 vaginal cream oxyquinoline 0.025 %-sodium lauryl 1 ea vaginal 2XW #2 tubes 03/22/23 sulfate 0.01 % vaginal gel (Trimo-Luong Jelly) ciprofloxacin HCl 500 mg tablet 500 mg PO BID 10 days #20 tabs 08/20/23 (Cipro) metronidazole 500 mg tablet 500 mg PO TID 10 days #30 tabs 08/20/23 ondansetron 4 mg disintegrating 4 mg PO Q8H PRN nausea and 08/20/23 tablet vomiting #10 tabs Allergies Allergy/AdvReac Type Severity Reaction Status Date / Time penicillamine [PENICILLAMINE] Allergy Intermediate HIVES, SOB Verified 08/20/23 09:11 amoxicillin [From Augmentin] Allergy Verified 08/20/23 09:11 clavulanic acid Allergy Verified 08/20/23 09:11 [From Augmentin] Penicillins Allergy Verified 08/20/23 09:11 Review of Systems Review of Systems Narrative: See HPI Patient History Medical History Vaginal wall prolapse Postmenopause atrophic vaginitis Social History Smoking Status: Former smoker Smoking Status: Former smoker Exam Initial Vital Signs Initial Vital Signs: Vital Signs Temperature 98.5 F 08/20/23 08:37 Pulse Rate 64 08/20/23 08:37 Respiratory Rate 16 08/20/23 08:37 Blood Pressure 157/70 H 08/20/23 08:37 Pulse Oximetry 99 08/20/23 08:37 Oxygen Delivery Method Room Air 08/20/23 08:37 Const General: cooperative, comfortable and No ill appearing HENMT Head: normal to inspection and normocephalic Resp Effort & Inspection: normal respiratory effort Auscultation: clear to auscultation bilaterally Cardio Rate: regular rate Rhythm: regular rhythm GI Inspection: normal to inspection and non-distended Palpation: soft, No firm, No guarding and tender (Left lower quadrant) Skin General: no rashes or lesions noted Neuro General: patient alert, patient awake and moves all extremities Extrem General: normal to inspection, capillary refill normal and No edema Course Orders Ordered: ED Orders 08/20/23 08:51 CT abdomen pelvis w con Stat Complete Blood Count AUTO DIFF Stat Comprehensive Metabolic Panel Stat Covid-19 + FLU A/B + RSV - PCR Stat Lipase Stat Discontinued Medications Sodium Chloride (Normal Saline 0.9%) 1,000 mls @ 1,000 mls/hr IV BOLUS ONE Stop: 08/20/23 09:50 Last Infusion: 08/20/23 10:00 Dose: Infused Vital Signs Vital signs: Vital Signs - 8 hr 08/20/23 08:37 08/20/23 08:41 08/20/23 08:41 Temperature 98.5 F Pulse Rate 64 64 Respiratory Rate 16 Blood Pressure 157/70 H 157/70 H Pulse Oximetry 99 98 Oxygen Delivery Method Room Air 08/20/23 09:00 08/20/23 09:01 08/20/23 09:01 Temperature Pulse Rate 62 61 Respiratory Rate 17 Blood Pressure 126/67 Pulse Oximetry 100 100 Oxygen Delivery Method Medical Decision Making Lab Data Lab results reviewed: Yes I reviewed the patient's lab results. 08/20/23 09:07 08/20/23 09:07 Labs: Lab Results 08/20/23 Range/Units 09:07 WBC 11.1 H (4.5-11.0) X10^3/uL RBC 4.22 (4.0-5.2) X10^6/uL Hgb 12.9 (12.0-16.0) g/dL Hct 38.4 (36-46) % MCV 90.9 (80-100) fL MCH 30.5 (26-34) PG MCHC 33.6 (30-36) % RDW 13.6 (11.6-14.8) % Plt Count 179 (150-400) X10^3/uL Neut % (Auto) 79.8 H (50-75) % Lymph % (Auto) 11.1 L (25-40) % Appling % (Auto) 8.0 (3-14) % Eos % (Auto) 0.9 L (2-4) % Baso % (Auto) 0.2 (0-2) % Neut # (Auto) 8900 H (0295-7553) /uL Lymph # (Auto) 1200 (8358-3555) /uL Appling # (Auto) 900 (0-900) /uL Eos # (Auto) 100 (0-450) /uL Baso # (Auto) 0 (0-100) /uL Sodium 134 L (137-145) mmol/L Potassium 3.8 (3.4-5.1) mmol/L Chloride 107 (98-107) mmol/L Carbon Dioxide 23 (22-32) mmol/L BUN 11 (7-17) mg/dL Creatinine 0.69 (0.52-1.04) mg/dL Estimated GFR > 60 (>60) mL/min BUN/Creatinine Ratio 15.9 (6-22) Glucose 124 H (80-110) mg/dL Calcium 8.6 (8.4-10.2) mg/dL Total Bilirubin 0.7 (0.2-1.3) mg/dL AST 19 (14-36) IU/L ALT 14 (<35) IU/L Alkaline Phosphatase 51 (38-126) U/L Total Protein 6.7 (6.3-8.2) g/dL Albumin 4.0 (3.5-5.0) g/dL Globulin 2.7 (1.7-4.1) g/dL Albumin/Globulin Ratio 1.5 (1.0-2.8) Lipase 56 (23-300) U/L SARS-CoV-2 (PCR) Negative (Negative) Influenza A (RT-PCR) Flu a negative (NEGATIVE) Influenza B (RT-PCR) Flu b negative (NEGATIVE) RSV (PCR) Negative (Negative) Urine Dip Bedside Urine Glucose Negative Bedside Urine Bilirubin - Negative Bedside Urine Ketone +/- 5 Urine Specific Cherry Log 1.005 Bedside Urine Occult Blood - Negative Bedside Urine pH 8.0 Bedside Urine Protein - Negative Bedside Urine Urobilinogen - Negative Bedside Urine Nitrite - Negative Bedside Urine Leukocytes - Negative Esterase Point of care testing: Urine Dip Bedside Urine Glucose Negative Bedside Urine Bilirubin - Negative Bedside Urine Ketone +/- 5 Urine Specific Cherry Log 1.005 Bedside Urine Occult Blood - Negative Bedside Urine pH 8.0 Bedside Urine Protein - Negative Bedside Urine Urobilinogen - Negative Bedside Urine Nitrite - Negative Bedside Urine Leukocytes - Negative Esterase Imaging Data CT scan - abdomen/pelvis: Radiologist's Impression: PROCEDURE: CT ABDOMEN PELVIS W CON INDICATIONS: LLQ abd pain TECHNIQUE: After the administration of intravenous contrast, axial sections acquired from the lung bases to the pubic symphysis. Coronal and sagittal reformats were performed. For radiation dose reduction, the following was used: automated exposure control, adjustment of mA and/or kV according to patient size. COMPARISON: None. FINDINGS: Image quality: Diagnostic. Lower Chest: No significant findings. ABDOMEN: Liver: No solid mass. Areas of patchy increased liver enhancement can be seen, yet without masslike enhancement. Gallbladder: No radiopaque gallstones or wall thickening. Biliary ducts: No biliary dilation. Pancreas: No ductal dilation. Spleen: Size is within normal limits. Numerous calcified granulomas can be seen within the spleen. Incidental note is made of an accessory splenule along the hilum of the primary spleen. Adrenal Glands: No adrenal nodules. Kidneys and Ureters: No hydronephrosis. No solid mass. No complex renal cystic lesion which requires follow up. Stomach and Bowel: Abnormal wall thickening and hyperenhancement can be seen involving the sigmoid colon, with diverticula formation. Moderate surrounding inflammatory change can be seen. The more proximal colon is within normal limits. No dilated loops of small bowel are seen. Peritoneum: No peritoneal abscess is seen. No abnormal intraperitoneal fluid. No free air. Ventral Wall: No significant ventral hernia. Abdominal Nodes: No retroperitoneal or mesenteric adenopathy by size criteria. Vessels: Aorta and inferior vena cava are normal in size. Mild prominence of vessels can be seen within the left upper quadrant of the abdomen. PELVIS: Pelvic Organs: The endometrial stripe is thickened at 7-8 mm. No adnexal masses are seen. A vaginal pessary can be seen. Bladder: No bladder wall thickening, accounting for underdistention. Pelvic Nodes: No enlarged lymph nodes. Miscellaneous: No inguinal hernias are seen. Bones: Focal L5-S1 degenerative change is seen, including significant vacuum disc phenomenon. Milder degenerative changes are seen elsewhere. IMPRESSION: Moderate sigmoid colon diverticulitis, without kolton findings of perforation or abscess. - When clinically appropriate (following adequate treatment of the patient's current clinical episode) a colonoscopy is recommended for further evaluation for a potential underlying mass (if not already recently done). Thickened endometrial stripe at 7-8 mm. Please consider endometrial neoplasm. - If clinically appropriate, please consider a follow-up pelvic ultrasound for further evaluation. Additional findings: Patchy areas of increased liver echogenicity, likely benign Prior granulomatous exposure. Accessory splenule Focal L5-S1 degenerative change Vaginal pessary MDM Narrative Medical decision making narrative: Patient reports improvement of symptoms after fluids. Urinalysis is negative. Has a very slight leukocytosis. CT scan shows diverticulitis which does correspond to her presenting symptoms. She has not been hypotensive since being here in the emergency department. There was no indication for admission the hospital or emergent surgical consultation. Will discharge with a prescription for antibiotics. This was sent to the pharmacy of her choice. She was given return precautions. She expressed understanding and agreement. We also discussed the incidental finding of the thickened endometrium on the CT scan. Recommended that she contact her primary care doctor so that they can discuss the indications for a pelvic ultrasound. Patient expressed understanding and agreement. Discharge Plan Departure Patient Disposition: Home Clinical Impression: Diverticulitis Instructions: DI for Diverticulitis Activity Restrictions/Additional Instructions: Take the antibiotics as directed. Recommend a bland diet for the next couple days. Like we discussed you do need to follow-up with your primary care doctor to discuss the findings of the CT scan today and to discuss the indications for a ultrasound of your uterus. Return to the emergency department for new or worsening symptoms. Prescriptions: New ciprofloxacin HCl [Cipro] 500 mg tablet 500 mg PO BID 10 Days Qty: 20 0RF metronidazole 500 mg tablet 500 mg PO TID 10 Days Qty: 30 0RF ondansetron 4 mg tablet,disintegrating 4 mg PO Q8H PRN (Reason: nausea and vomiting) Qty: 10 0RF No Action benzonatate 100 mg capsule 100 mg PO BID PRN (Reason: cough) Qty: 20 0RF meclizine 25 MG tablet 25 mg PO Q6HP PRNQty: 20 0RF denosumab [Prolia] 60 MG/1 ML syringe 60 mg SQ Qty: 0 estradiol 0.01 % (0.1 mg/gram) cream 1 g vaginal 2XW Qty: 85 2RF Trimo-Luong Jelly 0.025-0.01 % gel 1 ea vaginal 2XW Qty: 2 6RF levothyroxine 25 mcg tablet 100 mcg PO DAILY amlodipine 5 mg tablet 5 mg PO DAILY cholecalciferol (vitamin D3) 50 mcg (2,000 unit) capsule 50 mcg PO DAILY cyanocobalamin (vitamin B-12) 1,000 mcg capsule 1,000 mcg PO DAILY Trey 128 2 % drops EYE-BOTH BID sodium chloride [Trey 128] 5 % ointment EYE-BOTH ONCE estradiol 0.01 % (0.1 mg/gram) cream 1 g vaginal 2XW Qty: 2 6RF Referrals: Jesica Arreguin MD [Primary Care Provider] - Stand Alone Forms: Patient Portal/API
[2023-08-20] MEDS: SODIUM CHLORIDE 0.9% 1,000 ML 1000 ML IV (09:11)
--- NOTE | 2023-08-20 09:13 | PC.NURSE ---
Episode around 8am of low bp. weakness, vomiting, sweating, chills. Pt states this is not normal for her and a little bit of lower abd pain.
[2023-08-20 09:17] LABS: Add Manual Diff / Slide Review NO; Basophils Absolute Auto 0 /uL (0-100); Basophils Percent Auto 0.2 % (0-2); Eosinophils Absolute Auto 100 /uL (0-450); Eosinophils Percent Auto 0.9 % (2-4); Hematocrit 38.4 % (36-46); Hemoglobin 12.9 g/dL (12.0-16.0); Lymphocytes Absolute Auto 1200 /uL (1100-4500); Lymphocytes Percent Auto 11.1 % (25-40); Mean Corpuscular HGB Conc 33.6 % (30-36); Mean Corpuscular Hemoglobin 30.5 PG (26-34); Mean Corpuscular Volume 90.9 fL (80-100); Monocytes Absolute Auto 900 /uL (0-900); Neutrophils Absolute Auto 8900 /uL (1500-7000); Neutrophils Percent Auto 79.8 % (50-75); Platelet Count 179 X10^3/uL (150-400); Red Blood Cell Count 4.22 X10^6/uL (4.0-5.2); Red Cell Distribution Width 13.6 % (11.6-14.8); White Blood Cell Count 11.1 X10^3/uL (4.5-11.0)
[2023-08-20 09:42] LABS: Alanine Aminotransferase 14 IU/L (<35); Albumin Globulin Ratio 1.5 (1.0-2.8); Alkaline Phosphatase 51 U/L (38-126); Aspartate Aminotransferase 19 IU/L (14-36); BUN Creatinine Ratio 15.9 (6-22); Bilirubin Total 0.7 mg/dL (0.2-1.3); Blood Urea Nitrogen 11 mg/dL (7-17); Calcium 8.6 mg/dL (8.4-10.2); Carbon Dioxide 23 mmol/L (22-32); Chloride 107 mmol/L (98-107); Estimated Glomerular Filt Rate > 60 mL/min (>60); Globulin 2.7 g/dL (1.7-4.1); Glucose 124 mg/dL (80-110); HEMOLYSIS < 15 (0-50); Lipase 56 U/L (23-300); Potassium 3.8 mmol/L (3.4-5.1); Sodium 134 mmol/L (137-145); Total Protein 6.7 g/dL (6.3-8.2)
[2023-08-20 09:54] LABS: Influenza A - CEPHEID Flu A NEGATIVE (NEGATIVE); Influenza B - CEPHEID Flu B NEGATIVE (NEGATIVE); Respiratory Syncytial Virus Negative (Negative)
[2023-08-20 10:00] LABS: COVID-19 CEPHEID 4-PLEX PCR Negative (Negative)
== END 2023-08-20 10:53 | disposition home or self-care (01) ==
PROVIDERS: Emergency Provider Emergency Medicine; Family Provider Internal Medicine; PCP Internal Medicine
DX: K57.92 Diverticulitis of intestine, part unspecified, without perforation or abscess without bleeding (principal); R30.0 Dysuria; Z11.52 Encounter for screening for COVID-19
CPT/HCPCS: 0241U; 36415; 74177; 80053; 81003; 83690; 85025; 96360; 99284; Q9967

== ENCOUNTER 2023-08-28 07:19 | Emergency (ER) | payer MEDICARE, SELFPAY ==
[2023-08-28 07:33] VITALS: BP 156/71; PULSE 66; RESP 18; TEMP 36.2; O2SAT 96; BMI 23.8
--- NOTE | 2023-08-28 08:10 | ED.ABDPAIN ---
HPI - Abdominal Pain General Chief Complaint: Abdominal Pain Stated Complaint: per pt diverticulitis/constipation, sent by [facility] Time Seen by Provider: 08/28/23 07:46 Source: patient Mode of arrival: Ambulatory History of Present Illness HPI narrative: Patient is an 78-year-old female history of hypothyroid hypertension with new diagnosis of diverticulitis presenting today with abdominal bloating fullness and constipation. She was diagnosed with diverticulitis by CT on August 19 she has been on Cipro and Flagyl since then. She has had very watery stools for the last few days. She feels like she has to maybe go but can not quite. She does not have any fullness or pressure in her rectum. She has no bloody stools. She has been eating apple juice cream of wheat another low fiber foods. She typically takes fiber and prune juice which she has stopped. She denies any fever. She is continuing to take Cipro Flagyl she is actually due soon for her morning medication. Nausea or vomiting. Related Data Home Medications Medication Instructions Recorded Confirmed denosumab 60 mg/mL subcutaneous 60 mg SQ ##0 12/08/16 10/24/17 syringe (Prolia) amlodipine 5 mg tablet 5 mg PO DAILY 09/23/20 09/23/20 cholecalciferol (vitamin D3) 50 50 mcg PO DAILY 09/23/20 09/23/20 mcg (2,000 unit) capsule cyanocobalamin (vitamin B-12) 1,000 mcg PO DAILY 09/23/20 09/23/20 1,000 mcg capsule levothyroxine 25 mcg tablet 100 mcg PO DAILY 09/23/20 09/23/20 sodium chloride 2 % eye drops drp EYE-BOTH BID 09/23/20 09/23/20 (Trey 128) sodium chloride 5 % eye ointment EYE-BOTH ONCE 09/23/20 09/23/20 (Trey 128) Previous Rx's Medication Instructions Recorded meclizine 25 mg tablet 25 mg PO Q6HP PRN #20 tabs 12/08/16 estradiol 0.01% (0.1 mg/gram) 1 g vaginal 2XW #2 tubes 09/23/20 vaginal cream benzonatate 100 mg capsule 100 mg PO BID PRN cough #20 caps 04/09/22 estradiol 0.01% (0.1 mg/gram) 1 g vaginal 2XW #85 grams 12/15/23 vaginal cream oxyquinoline 0.025 %-sodium lauryl 1 ea vaginal 2XW #2 tubes 03/22/23 sulfate 0.01 % vaginal gel (Trimo-Luong Jelly) ciprofloxacin HCl 500 mg tablet 500 mg PO BID 10 days #20 tabs 08/20/23 (Cipro) fluconazole 100 mg tablet 100 mg PO DAILY #2 tabs 08/20/23 (Diflucan) metronidazole 500 mg tablet 500 mg PO TID 10 days #30 tabs 08/20/23 ondansetron 4 mg disintegrating 4 mg PO Q8H PRN nausea and 08/20/23 tablet vomiting #10 tabs Allergies Allergy/AdvReac Type Severity Reaction Status Date / Time penicillamine [PENICILLAMINE] Allergy Intermediate HIVES, SOB Verified 08/20/23 09:11 amoxicillin [From Augmentin] Allergy Verified 08/20/23 09:11 clavulanic acid Allergy Verified 08/20/23 09:11 [From Augmentin] Penicillins Allergy Verified 08/20/23 09:11 Patient History Medical History Vaginal wall prolapse Postmenopause atrophic vaginitis Social History Smoking Status: Former smoker Smoking Status: Former smoker Substance Use Type: does not use Exam Initial Vital Signs Initial Vital Signs: Vital Signs Temperature 97.2 F L 08/28/23 07:33 Pulse Rate 66 08/28/23 07:33 Respiratory Rate 18 08/28/23 07:33 Blood Pressure 156/71 H 08/28/23 07:33 Pulse Oximetry 96 08/28/23 07:33 Oxygen Delivery Method Room Air 08/28/23 07:33 GENERAL: Alert 78-year-old female and in no acute distress. HEENT: Head atraumatic,EOMI, pupils reactive, face symmetric, moist mucous membranes CARDIOVASCULAR: Regular rate and rhythm without murmurs, rubs or gallops. RESPIRATORY: Breath sounds equal bilaterally, no wheezes rales or rhonchi. ABDOMEN: Soft, mild tenderness left lower quadrant no distention guarding or rebound EXTREMITIES: Normal range of motion, no clubbing or edema. Neurovascularly intact NEUROLOGICAL: Alert and oriented x4.Normal gait and speech. SKIN: Warm, dry, no laceration, no petechiae, no rashes or lesions. Course Orders Ordered: Discontinued Medications Acetaminophen (Acetaminophen 325 Mg Tablet) 975 mg PO NOW ONE Stop: 08/28/23 08:49 Last Admin: 08/28/23 08:59 Dose: 975 mg Documented By: Vital Signs Vital signs: Vital Signs - 8 hr 08/28/23 07:33 Temperature 97.2 F L Pulse Rate 66 Respiratory Rate 18 Blood Pressure 156/71 H Pulse Oximetry 96 Oxygen Delivery Method Room Air MDM - Abdominal Pain Lab Data 08/28/23 08:10 08/28/23 08:10 Labs: Lab Results 08/28/23 Range/Units 08:10 WBC 5.9 (4.5-11.0) X10^3/uL RBC 4.62 (4.0-5.2) X10^6/uL Hgb 14.2 (12.0-16.0) g/dL Hct 41.7 (36-46) % MCV 90.3 (80-100) fL MCH 30.7 (26-34) PG MCHC 34.0 (30-36) % RDW 13.1 (11.6-14.8) % Plt Count 238 (150-400) X10^3/uL Neut % (Auto) 59.6 (50-75) % Lymph % (Auto) 25.0 (25-40) % [place] % (Auto) 11.3 (3-14) % Eos % (Auto) 3.1 (2-4) % Baso % (Auto) 1.0 (0-2) % Neut # (Auto) 3500 (3339-8322) /uL Lymph # (Auto) 1500 (5623-2860) /uL [place] # (Auto) 700 (0-900) /uL Eos # (Auto) 200 (0-450) /uL Baso # (Auto) 100 (0-100) /uL Sodium 137 (137-145) mmol/L Potassium 3.7 (3.4-5.1) mmol/L Chloride 105 (98-107) mmol/L Carbon Dioxide 23 (22-32) mmol/L BUN 6 L (7-17) mg/dL Creatinine 0.66 (0.52-1.04) mg/dL Estimated GFR > 60 (>60) mL/min BUN/Creatinine Ratio 9.1 (6-22) Glucose 116 H (80-110) mg/dL Calcium 8.6 (8.4-10.2) mg/dL Total Bilirubin 0.5 (0.2-1.3) mg/dL AST 83 H (14-36) IU/L ALT 57 H (<35) IU/L Alkaline Phosphatase 42 (38-126) U/L Total Protein 7.3 (6.3-8.2) g/dL Albumin 4.6 (3.5-5.0) g/dL Globulin 2.7 (1.7-4.1) g/dL Albumin/Globulin Ratio 1.7 (1.0-2.8) Lipase 64 (23-300) U/L Point of care testing: Urine Dip Bedside Urine Glucose Negative Bedside Urine Bilirubin - Negative Bedside Urine Ketone - Negative Urine Specific [place] 1.010 Bedside Urine Occult Blood - Negative Bedside Urine pH 6.5 Bedside Urine Protein - Negative Bedside Urine Urobilinogen - Negative Bedside Urine Nitrite - Negative Bedside Urine Leukocytes - Negative Esterase Imaging Data CT scan - abdomen/pelvis: Radiologist's Impression: PROCEDURE: CT ABDOMEN PELVIS W CON INDICATIONS: worsening pain known diverticulitis TECHNIQUE: After the administration of intravenous contrast, axial sections acquired from the lung bases to the pubic symphysis. Coronal and sagittal reformats were performed. For radiation dose reduction, the following was used: automated exposure control, adjustment of mA and/or kV according to patient size. COMPARISON: [facility], CT, CT ABDOMEN PELVIS W CON, 08/20/2023, 9:16. FINDINGS: Image quality: Diagnostic. Lower Chest: No significant findings. ABDOMEN: Liver: No solid mass. Gallbladder: No radiopaque gallstones or wall thickening. Biliary ducts: No biliary dilation. Pancreas: No ductal dilation. Spleen: Size is within normal limits. Adrenal Glands: No adrenal nodules. Kidneys and Ureters: No hydronephrosis. No solid mass. No complex renal cystic lesion which requires follow up. Stomach and Bowel: Normal colonic caliber, without significant wall thickening. Definite improvement in sigmoid diverticulitis, with residual wall thickening noted, significantly improved. [id number] underlying diverticulosis. Peritoneum: No abnormal intraperitoneal fluid. No free air. Ventral Wall: No significant ventral hernia. Abdominal Nodes: No retroperitoneal or mesenteric adenopathy by size criteria. Vessels: Aorta and inferior vena cava are normal in size. PELVIS: Pelvic Organs: There is increased density present focally in the right vulva suggesting possible enhancement. It measures approximately 10 mm in diameter. Reference axial image 82 of series 2 and coronal image 25 of series 3. Pessary. Again noted is a somewhat prominent uterine endometrial stripe. Bladder: No bladder wall thickening, accounting for underdistention. Pelvic Nodes: No enlarged lymph nodes. Miscellaneous: No inguinal hernias are seen. Bones: No aggressive osseous abnormality. Lumbar degenerative change with severe canal stenosis at L4-L5. IMPRESSION: 1. Improving sigmoid diverticulitis. 2. Question enhancing 1 cm lesion of right vulva. 3. Prominent uterine endometrial stripe. 4. Incidental note made of severe canal stenosis at L4-L5. Comment: Recommend nonemergent ultrasound of the vulva to exclude a solid lesion of the right vulva, as well as to evaluate the endometrium of the uterus. Dictated by: Oswaldo Cantor M.D. on 08/28/2023 at 9:10 MDM Narrative Medical decision making narrative: Patient 78-year-old female with recent diagnosis of diverticulitis presents today with abnormal bowel movements. She has using a [place] stool scale to grade her stool. She reports that she has been at a [place] 7 for the last few days which means watery. It is nonbloody. She continues to be on antibiotics. It is possible she has C diff but it sounds like she has had watery stools almost as soon as she started antibiotics. Her abdomen is soft mildly tender Blood work has been reviewed no leukocytosis no significant CT scan shows improving diverticulitis, there is a prominent endometrial stripe and lesion on the vulva Patient is not requiring anything for pain. I suspect that her stool is secondary to her ongoing diverticulitis is nonbloody. She still has about 3 more days of antibiotics. She has not had any stool who bowel movement here in the ED. Recommend she finish her antibiotics increase her diet. If she continues to have watery stool then she would need a stool sample to rule out C diff She is also made aware lesion the vulva recommended outpatient pelvic ultrasound to her. It was hand written on her discharge instructions, she understands this. At this time continue treatment Discharge Plan Departure Patient Disposition: Home Clinical Impression: Diverticulitis, Vulval lesion Instructions: DI for Diverticulitis Activity Restrictions/Additional Instructions: *You have been diagnosed with diverticulitis *What to do: At this time I think your stool is from diverticulitis. No evidence of significant constipation no need for an enema. May require a probiotic If you continue to have watery stool after you finish your antibiotic you may need testing for C diff *Continue to take medications as directed Please finish antibiotics as prescribed *Follow up with your primary care provider in 2-3 days or call [phone] *Return to ER if you should have increasing diarrhea, abdominal pain fever or any new, worsening or concerning symptoms Prescriptions: No Action benzonatate 100 mg capsule 100 mg PO BID PRN (Reason: cough) Qty: 20 0RF meclizine 25 MG tablet 25 mg PO Q6HP PRNQty: 20 0RF denosumab [Prolia] 60 MG/1 ML syringe 60 mg SQ Qty: 0 estradiol 0.01 % (0.1 mg/gram) cream 1 g vaginal 2XW Qty: 85 2RF Trimo-Luong Jelly 0.025-0.01 % gel 1 ea vaginal 2XW Qty: 2 6RF levothyroxine 25 mcg tablet 100 mcg PO DAILY amlodipine 5 mg tablet 5 mg PO DAILY cholecalciferol (vitamin D3) 50 mcg (2,000 unit) capsule 50 mcg PO DAILY cyanocobalamin (vitamin B-12) 1,000 mcg capsule 1,000 mcg PO DAILY Trey 128 2 % drops EYE-BOTH BID sodium chloride [Trey 128] 5 % ointment EYE-BOTH ONCE estradiol 0.01 % (0.1 mg/gram) cream 1 g vaginal 2XW Qty: 2 6RF ciprofloxacin HCl [Cipro] 500 mg tablet 500 mg PO BID 10 Days Qty: 20 0RF metronidazole 500 mg tablet 500 mg PO TID 10 Days Qty: 30 0RF ondansetron 4 mg tablet,disintegrating 4 mg PO Q8H PRN (Reason: nausea and vomiting) Qty: 10 0RF fluconazole [Diflucan] 100 mg tablet 100 mg PO DAILY Qty: 2 0RF Referrals: Jesica Arreguin MD [Primary Care Provider] - Stand Alone Forms: Patient Portal/API
[2023-08-28 08:17] LABS: Add Manual Diff / Slide Review NO; Basophils Absolute Auto 100 /uL (0-100); Eosinophils Absolute Auto 200 /uL (0-450); Eosinophils Percent Auto 3.1 % (2-4); Hematocrit 41.7 % (36-46); Hemoglobin 14.2 g/dL (12.0-16.0); Lymphocytes Absolute Auto 1500 /uL (1100-4500); Mean Corpuscular Hemoglobin 30.7 PG (26-34); Mean Corpuscular Volume 90.3 fL (80-100); Monocytes Absolute Auto 700 /uL (0-900); Monocytes Percent Auto 11.3 % (3-14); Neutrophils Absolute Auto 3500 /uL (1500-7000); Neutrophils Percent Auto 59.6 % (50-75); Platelet Count 238 X10^3/uL (150-400); Red Blood Cell Count 4.62 X10^6/uL (4.0-5.2); Red Cell Distribution Width 13.1 % (11.6-14.8); White Blood Cell Count 5.9 X10^3/uL (4.5-11.0)
--- NOTE | 2023-08-28 08:24 | DI.CT.S_ITS ---
PROCEDURE: CT ABDOMEN PELVIS W CON INDICATIONS: worsening pain known diverticulitis TECHNIQUE: After the administration of intravenous contrast, axial sections acquired from the lung bases to the pubic symphysis. Coronal and sagittal reformats were performed. For radiation dose reduction, the following was used: automated exposure control, adjustment of mA and/or kV according to patient size. COMPARISON: [facility], CT, CT ABDOMEN PELVIS W CON, 08/20/2023, 9:16. FINDINGS: Image quality: Diagnostic. Lower Chest: No significant findings. ABDOMEN: Liver: No solid mass. Gallbladder: No radiopaque gallstones or wall thickening. Biliary ducts: No biliary dilation. Pancreas: No ductal dilation. Spleen: Size is within normal limits. Adrenal Glands: No adrenal nodules. Kidneys and Ureters: No hydronephrosis. No solid mass. No complex renal cystic lesion which requires follow up. Stomach and Bowel: Normal colonic caliber, without significant wall thickening. Definite improvement in sigmoid diverticulitis, with residual wall thickening noted, significantly improved. [id number] underlying diverticulosis. Peritoneum: No abnormal intraperitoneal fluid. No free air. Ventral Wall: No significant ventral hernia. Abdominal Nodes: No retroperitoneal or mesenteric adenopathy by size criteria. Vessels: Aorta and inferior vena cava are normal in size. PELVIS: Pelvic Organs: There is increased density present focally in the right vulva suggesting possible enhancement. It measures approximately 10 mm in diameter. Reference axial image 82 of series 2 and coronal image 25 of series 3. Pessary. Again noted is a somewhat prominent uterine endometrial stripe. Bladder: No bladder wall thickening, accounting for underdistention. Pelvic Nodes: No enlarged lymph nodes. Miscellaneous: No inguinal hernias are seen. Bones: No aggressive osseous abnormality. Lumbar degenerative change with severe canal stenosis at L4-L5. IMPRESSION: 1. Improving sigmoid diverticulitis. 2. Question enhancing 1 cm lesion of right vulva. 3. Prominent uterine endometrial stripe. 4. Incidental note made of severe canal stenosis at L4-L5. Comment: Recommend nonemergent ultrasound of the vulva to exclude a solid lesion of the right vulva, as well as to evaluate the endometrium of the uterus. Dictated by: Oswaldo Cantor M.D. on 08/28/2023 at 9:10 Approved by: Oswaldo Cantor M.D. on 08/28/2023 at 9:28
[2023-08-28 08:27] LABS: Alanine Aminotransferase 57 IU/L (<35); Albumin 4.6 g/dL (3.5-5.0); Albumin Globulin Ratio 1.7 (1.0-2.8); Alkaline Phosphatase 42 U/L (38-126); Aspartate Aminotransferase 83 IU/L (14-36); BUN Creatinine Ratio 9.1 (6-22); Bilirubin Total 0.5 mg/dL (0.2-1.3); Blood Urea Nitrogen 6 mg/dL (7-17); Calcium 8.6 mg/dL (8.4-10.2); Carbon Dioxide 23 mmol/L (22-32); Chloride 105 mmol/L (98-107); Estimated Glomerular Filt Rate > 60 mL/min (>60); Globulin 2.7 g/dL (1.7-4.1); Glucose 116 mg/dL (80-110); HEMOLYSIS 31 (0-50); Lipase 64 U/L (23-300); Potassium 3.7 mmol/L (3.4-5.1); Sodium 137 mmol/L (137-145); Total Protein 7.3 g/dL (6.3-8.2)
[2023-08-28] MEDS: ACETAMINOPHEN 325 MG TABLET 975 MG PO (08:59)
[2023-08-28 09:14] VITALS: PULSE 68; O2SAT 94
[2023-08-28 09:15] VITALS: BP 137/65; PULSE 71; O2SAT 98
[2023-08-28 09:24] VITALS: BP 137/61; PULSE 67; O2SAT 97
[2023-08-28 09:30] VITALS: BP 123/61; PULSE 69; O2SAT 99
[2023-08-28 10:00] VITALS: PULSE 68; O2SAT 99
== END 2023-08-28 10:05 | disposition home or self-care (01) ==
PROVIDERS: Emergency Provider Emergency Medicine; Family Provider Internal Medicine; PCP Internal Medicine
DX: K57.32 Diverticulitis of large intestine without perforation or abscess without bleeding (principal); N90.89 Other specified noninflammatory disorders of vulva and perineum
CPT/HCPCS: 36415; 74177; 80053; 81003; 83690; 85025; 99283; 99284; Q9967

== ENCOUNTER → 2023-09-12 07:12 | Outpatient (CLI) | payer MEDICARE, SELFPAY ==
--- NOTE | 2023-09-12 | DI.US.S_ITS ---
PROCEDURE: US PELVIC COMPLETE INDICATIONS: THICKENED ENDOMETRIUM TECHNIQUE: Real-time scanning was performed of the pelvic organs, with image documentation. Additional endovaginal scanning was necessary due to incomplete visualization of the adnexal and endometrial structures by transabdominal scanning. COMPARISON: None. FINDINGS: Uterus: Uterus is anteverted and normal in size at 8 x 3.3 x 4.8 cm. The myometrium is homogeneous. The endometrium measures 9.2 mm combined thickness. Heterogeneous endometrial echotexture is seen with small amount of fluid within endometrium. No discrete endometrial mass is seen. Ovaries: Bilateral ovaries are not visualized on this study. No adnexal mass is seen. Other: No pathologic free abdominal or pelvic fluid. No vulvar mass is seen. IMPRESSION: 1. Thickened endometrium for patient's age with heterogeneous endometrial echotexture and small amount of endometrial fluid. Finding could represent endometrial hyperplasia. [employer] Professor correlation is recommended. 2. Bilateral ovaries are not visualized. No adnexal mass is seen. No right vulvar mass is noted. We strive to produce accurate, complete, and clear reports of imaging services. To assist us in improving patient care, this report was composed using standard report templates and voice recognition software. Therefore, it may contain abnormal punctuation, insertions and/or omissions. Occasional wrong-word or sound-alike substitutions may occur. Though we review the report and make efforts to correct it, we do recommend that the report be read carefully in proper context to recognize any text inaccuracies. Dictated by: Daniel Marin M.D. on 09/12/2023 at 14:40 Approved by: Daniel Marin M.D. on 09/12/2023 at 14:42
== END ==
PROVIDERS: Family Provider Internal Medicine; PCP Internal Medicine; Referring Provider Internal Medicine; Visit Provider Internal Medicine
DX: R93.89 Abnormal findings on diagnostic imaging of other specified body structures (principal); N90.89 Other specified noninflammatory disorders of vulva and perineum
CPT/HCPCS: 76830; 76856

== ENCOUNTER → 2023-09-29 07:35 | Outpatient (CLI) | payer MEDICARE, SELFPAY ==
[2023-09-29 09:09] LABS: Clostridium Difficile Tox PCR Negative for C. diff (Negative)
== END ==
LOC: LAB 07:36
PROVIDERS: Family Provider Internal Medicine; PCP Internal Medicine; Referring Provider Internal Medicine; Visit Provider Internal Medicine
DX: R19.7 Diarrhea, unspecified (principal)
CPT/HCPCS: 36415; 87493

== ENCOUNTER → 2023-10-02 14:13 | Outpatient (CLI) | payer MEDICARE, SELFPAY ==
--- NOTE | 2023-10-02 14:14 | DI.RAD.S_ITS ---
PROCEDURE: XR DEXA AXIAL SKELETON INDICATIONS: AGE RELATED OSTEOPOROSIS COMPARISON: [facility], CR, XR DEXA AXIAL SKELETON, 10/08/2021, 10:26. FINDINGS: Lumbar Spine: Bone mineral density 0.841 g/cm2, T score -1.6, osteopenia. Left Hip: Bone mineral density is 0.703 g/cm2, T score -2.0, osteopenia. Left Femoral Neck: Bone mineral density 0.568 g/cm2, T score -2.5, 2 osteoporosis. Right Hip: Bone mineral density is 0.723 g/cm2, T score -1.8, osteopenia. Right Femoral Neck: Bone mineral density 0.549 g/cm2, T score -2.7, osteoporosis. Fracture Risk Calculation (when applicable): 10-year fracture risk of a major osteoporotic fracture 17 percent and of a hip fracture 6.1 percent (T score greater or equal to -1.0 to: NORMAL) (T score from -1.1 to -2.4: OSTEOPENIA) (T score less than or equal to -2.5: OSTEOPOROSIS) IMPRESSION: Osteoporosis Follow-up guidelines as follows: Osteoporosis: Consider a repeat DEXA and Vertebral Fracture Assessment (VFA) exam in 2 years or sooner if medically necessary, to reassess this patient's status. Osteopenia: Consider a repeat DEXA in 2-3 years to reassess this patient's status, or if there is a new clinical indication. Normal: Consider a repeat DEXA in 5 years or sooner, or if there is a new clinical indication. All treatment decisions require clinical judgment and consideration of individual patient factors, including patient preferences, comorbidities, previous drug use, risk factors not captured in the FRAX model (e.g., frailty, falls, vitamin D deficiency, increased bone turnover, interval significant decline in bone density ) and possible under- or over-estimation of fracture risk by FRAX. In addition, the NOF Guide recommends that FDA-approved medical therapies be considered in postmenopausal women and men age >= 50 years with a: * Hip or vertebral (clinical or morphometric) fracture * T-score of <=-2.5 at the spine or hip * Ten-year fracture probability by FRAX of >= 3% for hip fracture or >=20% for major osteoporotic fracture. People with diagnosed cases of osteoporosis or at high risk for fracture should have regular bone mineral density tests. For patients eligible for Medicare, routine testing is allowed once every 2 years. The testing frequency can be increased to one year for patients who have rapidly progressing disease, those who are receiving or discontinuing medical therapy to restore bone mass, or have additional risk factors. Dictated by: Arian Piedra M.D. on 10/02/2023 at 15:13 Approved by: Arian Piedra M.D. on 10/02/2023 at 15:17
== END ==
LOC: RAD 14:13
PROVIDERS: Family Provider Internal Medicine; PCP Internal Medicine; Referring Provider Internal Medicine; Visit Provider Internal Medicine
DX: M81.0 Age-related osteoporosis without current pathological fracture (principal)
CPT/HCPCS: 77080

== ENCOUNTER → 2024-05-14 13:14 | Outpatient (CLI) | payer MEDICARE, OTHER, SELFPAY ==
--- NOTE | 2024-05-14 13:20 | DI.RAD.S_ITS ---
PROCEDURE: XR CHEST 2V INDICATIONS: COUGH TECHNIQUE: 2 views of the chest were acquired. COMPARISON: [facility], CR, XR CHEST 2V, 04/09/2022, 11:07. FINDINGS: Heart, mediastinum and pulmonary vascular: Heart is normal in size and configuration. Mediastinum is unremarkable. Pulmonary vascular is normal. Lungs: Clear Pleural spaces: Normal-no effusions or pneumothorax. Bones and soft tissues: Moderate degenerative disc disease seen throughout the thoracic spine IMPRESSION: No cardiopulmonary disease. Dictated by: Cong Mart M.D. on 05/15/2024 at 10:04 Approved by: Cong Mart M.D. on 05/15/2024 at 10:05
== END ==
PROVIDERS: Family Provider Internal Medicine; PCP Internal Medicine; Referring Provider Internal Medicine; Visit Provider Internal Medicine
DX: R05.9 Cough, unspecified (principal); M51.34 Other intervertebral disc degeneration, thoracic region
CPT/HCPCS: 71046

== ENCOUNTER → 2024-05-30 09:12 | Outpatient (CLI) | payer MEDICARE, OTHER, SELFPAY ==
--- NOTE | 2024-05-30 09:13 | DI.CT.S_ITS ---
PROCEDURE: CT CHEST W CON INDICATIONS: HEMOPTYSIS TECHNIQUE: After the administration of intravenous contrast, 5 mm thick sections acquired from the pulmonary apices to the posterior costophrenic angles. 1 mm axial lung, 5 mm thick coronal and sagittal reformats and 7 mm axial MIP were acquired. For radiation dose reduction, the following was used: automated exposure control, adjustment of mA and/or kV according to patient size. COMPARISON: [facility], CR, XR CHEST 2V, 05/14/2024, 12:38. FINDINGS: Image quality: Diagnostic. Lower Neck: No enlarged lymph nodes. Thyroid: No thyroid nodules which require sonographic follow up, per consensus guidelines. Axillae: No enlarged lymph nodes. Chest Wall: Unremarkable. Bones: Visualized osseous structures appear intact without acute fracture or focal destructive lesion. No acute compression fractures of the imaged spine. Lungs and Pleura: No pneumothorax or pleural effusions. There are numerous scattered peripheral tiny nodular opacities in a tree-in-bud pattern involving the posterior margins of the bilateral hemithoraces with more patchy consolidations of the posteromedial left lower lobe and posterior right lower lobe. Heart: Heart size is normal. No pericardial effusion. Coronary atherosclerotic vascular calcifications are noted. Thoracic Vessels: The aorta and pulmonary arteries demonstrate normal size. Mediastinum and [place]: No enlarged lymph nodes. Calcified hilar and mediastinal lymph nodes compatible with prior granulomatous disease. Esophagus: No wall thickening. No hiatal hernia. Upper Abdomen: Visualized upper abdomen solid organs and bowel loops appear normal. Multiple calcified splenic granulomas. IMPRESSION: Multiple bilateral tree-in-bud opacities with more patchy consolidations of the posterior lower lobes consistent with an inflammatory/infectious process most likely related to an atypical/mycobacterial infection. Multiple stigmata of prior granulomatous disease. Other chronic findings as above. Recommend follow-up chest CT 3 months after treatment to document resolution of findings. Dictated by: Ish Rock M.D. on 06/01/2024 at 0:17 Approved by: Ish Rock M.D. on 06/01/2024 at 0:29
== END ==
PROVIDERS: Family Provider Internal Medicine; PCP Internal Medicine; Referring Provider Family Medicine; Visit Provider Family Medicine
DX: I25.10 Atherosclerotic heart disease of native coronary artery without angina pectoris (principal); R04.2 Hemoptysis; R91.8 Other nonspecific abnormal finding of lung field
CPT/HCPCS: 71260; Q9967

== ENCOUNTER → 2024-07-08 08:11 | Outpatient (CLI) | payer MEDICARE, OTHER, SELFPAY ==
--- NOTE | 2024-07-08 08:12 | DI.CT.S_ITS ---
PROCEDURE: CT CHEST WO CON INDICATIONS: F/U ON INFLAMMATORY CHANGES ON CT IN MAY TECHNIQUE: Noncontrast 5 mm thick sections acquired from the pulmonary apices to the posterior costophrenic angles. 1 mm lung window, 5 mm thick coronal and sagittal and 7 mm axial MIP reformats were then acquired. For radiation dose reduction, the following was used: automated exposure control, adjustment of mA and/or kV according to patient size. COMPARISON: [facility], CT, CT CHEST W CON, 05/30/2024, 9:27. FINDINGS: Image quality: Diagnostic. Lower Neck: No enlarged lymph nodes. Thyroid: No thyroid nodules which require sonographic follow up, per consensus guidelines. Axillae: No enlarged lymph nodes. Chest Wall: Unremarkable. Bones: Unremarkable. Lungs and Pleura: No pneumothorax or pleural effusions. Calcified granuloma. Waxing and waning dependent centrilobular and tree-in-bud nodules compared with prior. New 8 x 5 millimeter solid nodule in the dependent left lower lobe (series 3, image 198). Heart: Heart size is normal. No pericardial effusion. Moderate LAD calcifications for age. Thoracic Vessels: The aorta and pulmonary arteries demonstrate normal size. Mediastinum and [place]: No enlarged lymph nodes. Calcified lymph nodes. Esophagus: No wall thickening. No hiatal hernia. Upper Abdomen: Visualized upper abdomen solid organs and bowel loops appear normal. IMPRESSION: Waxing and waning dependent centrilobular and tree-in-bud nodules. Distribution is suggestive of recurrence aspiration. Differential includes non tuberculous mycobacterium infection. Consider speech pathology referral if not performed in the past. New 8 x 5 millimeter solid nodule in the left lower lobe. This is probably infectious. Six-month follow-up is recommended with chest CT without contrast. Dictated by: Jonnathan Ruth M.D. on 07/08/2024 at 10:02 Approved by: Jonnathan Ruth M.D. on 07/08/2024 at 10:14
== END ==
PROVIDERS: Family Provider Internal Medicine; PCP Internal Medicine; Referring Provider Internal Medicine; Visit Provider Internal Medicine
DX: J18.9 Pneumonia, unspecified organism (principal); R91.8 Other nonspecific abnormal finding of lung field
CPT/HCPCS: 71250

== ENCOUNTER 2024-08-06 13:56 | Outpatient (RCR) | payer MEDICARE, OTHER, SELFPAY ==
--- NOTE | 2024-08-06 18:27 | ST.OPIE ---
Visit Care Team Role Provider Type Jesica Arreguin MD Attending Provider Physician Family Provider Primary Care Provider Referring Provider Specialty: Internal Medicine Address: [place], [address] Email: Speech-Language Pathology Initial Evaluation ASPHALT SCREED OPERATOR Clinical Swallow Evaluation Start: 08/06/24 17:53 Freq: Status: Active Protocol: Document 08/06/24 17:53 SS (Rec: 08/06/24 18:26 SS Desktop) Clinical Swallow Evaluation Session Time Visit Start Time 14:30 Visit Stop Time 15:05 Total Visit Minutes 35 Visit Information Visit Number 1 Plan of Care Dates 08/06/24-11/06/24 Insurance Medicare (kx modifier after x19 visits) Information Referral Referring Provider Dr. Jesica Arreguin Reason for Referral Aspiration concerns Setting Assessment Location Outpatient Care Visit Type Note Type Initial evaluation Patient Information Identification Type Name History Antoni Rose is an 79-year-old female, referred for a clinical swallow evaluation by Dr. Arreguin due to concerns regarding aspiration and pulmonary nodules. About a year ago, pt had onset of pneumonia associated with an aspiration event. Chest CT from 05/30/24 showed evidence of multiple small pulmonary nodules. Repeat chest CT from 07/08/24 showed improvement in nodules and a persisting solid nodule in the left lower lobe per pulmonology notes. Pt is followed by second ride fare collector. Pt reported occasional choking sensation with liquids and solids. This occurs inconsistently, a few times a week. Pt expressed ?it feels like something is going down the wrong way?. She stated she occasionally regurgitates bolus. Pt also experiences frequent throat clearing and has a history of GERD and PND. She has had PNA twice in the past year as well as ER visits for diverticulitis, both of which have resolved. Onset of swallowing difficulties about 10 years ago with increase in frequency. Pt denied neurological history other than a concussion about 4 years ago. She reported changes to her voice and stated that she has been mildly hoarse for some time. Functional Oral Intake Scale (FOIS): Level 7 = total oral intake with no restrictions. Pt stated her goal for treatment is ?stop choking and coughing when eating and drinking? and ? avoid another nodule in my lungs.? Subjective Pt arrived to the evaluation on time and engaged and Observations motivated throughout. A clinical swallow evaluation was completed to assess pt?s current swallowing function and need for an instrumental swallow study. Reported by Patient/Caregiver Other Symptoms Choking,Coughing,Difficulty swallowing liquids, Difficulty swallowing solids,Food gets stuck,History of aspiration or pneumonia Current Diet Regular (IDDSI 7) Baseline Feeding Independent in self-feeding Method The IDDSI Framework Protocol: IDDSI.1 Objective Assessment Mental Status Alert,Responsive,Cooperative Oral Integrity WFL Dentition Within normal limits Lip Function Within normal limits Tongue Function Within normal limits Jaw Function Within normal limits Hard/Soft Palate Within normal limits Function Comment CRANIAL NERVE EXAM CN V (Trigeminal): Intact b/l CN VII (Facial): Intact b/l CN IX/X (Glossopharyngeal/Vagus): Unable to exclude CN X branch involvement 2/2 mild dysphonia CN XII (Hypoglossal): Intact b/l Pt?s oral health is good. Pt has own dentition with dental work noted. She reports brushing her teeth x2 daily. Oral health status is one of the three pillars of aspiration pneumonia, with research showing that poor oral health increases the risk of pulmonary compromise associated with aspiration. Food and Liquid Trials Position During Upright (90 degrees) Assessment Liquids Trialed Thin (IDDSI 0) Solid Trials Purred (IDDSI 4),Soft & Bite-sized (IDDSI 6),Regular ( IDDSI 7) Administration Type Cup single sip,Cup consecutive sips,Self-feeding Oral Impairment Within normal limits Oral Phase Comments Oral phase was within normal limits. pt demonstrated adequate bolus acceptance and containment. No anterior loss noted. Mastication appeared organized and timely. No oral residue was noted post-swallow. Pharyngeal Mildly impaired Impairment Pharyngeal Phase Pharyngeal phase appeared to mildly impaired. No overt Comments s/sx aspiration noted. However, pt reported occasional coughing and choking with liquids and solids at meals. Pt required multiple swallows across trials as well as use of liquid wash. Cannot rule out silent aspiration without further instrumental assessment. Fatigue/Endurance Endurance WNL [place] Swallow Yes Protocol Results The [place] Swallow Protocol is an evidence-based swallow screening protocol to determine aspiration risk. This tool has been validated across a number of different patient diagnoses and in a number of clinical settings. This is the only screening instrument that both identifies aspiration risk and, when passed, is able to recommend specific oral diets without the need for further instrumental dysphagia testing. Based upon research by Drs. Omar Spann and Adela Anthony, this is a reliable and validated swallow screening protocol. Cognitive Screen: PASS Results with 3oz water test: PASS Results with cracker: PASS The IDDSI Framework Protocol: IDDSI.1 Findings Swallowing Function Pharyngoesophageal phase dysphagia Severity of Swallow Mildly impaired Impairment Prognosis Good Based on Cognitive status,Age Comment Pt presents with indications of pharyngoesophageal dysphagia. Oral phase appeared to be WNL. Pharyngeal phase cannot be objectively assessed without instrumental assessment though subjectively appeared effortful and pt required multiple swallows per bolus at times. Pt did not demonstrate overt s/sx of aspiration during the assessment, but reported inconsistent throat clearing and coughing during meals at home. Pt also reported occasional regurgitation of solids, which may be indicative of impermanent in the esophageal phase of the swallow. Based on pt?s good oral health status and overall immune function, pt currently remains at a low risk of pulmonary compromise associated with aspiration at this time. Modified barium swallow study (MBSS) is indicated to thoroughly further assess pt?s swallow pathophysiology in order to determine the safest diet, effective compensatory strategies, and potential rehabilitation exercises for therapy. The plan is for the pt to complete a modified barium swallow study to further assess swallowing pathophysiology in order to determine treatment plan. Further goals will be established based on MBSS results . Provided education in the importance of oral care for reduced aspiration pneumonia risk and general safe swallow precautions. Pt verbalized understanding. Impact on Safety and Risk for aspiration Functioning Recommendations Instrumental Yes Assessment Swallowing Treatment Yes Frequency 1x/week (pending MBSS results) Duration 3 months (pending MBSS results) Recommended Solids Regular (IDDSI 7) Recommended Liquids Thin (IDDSI 0) Safety Precautions/ Reduce distractions,Remain upright (90 degrees) during Swallowing all oral intake,Upright position at least 30 minutes Recommendations after meals,Small bites and sips when eating,Slow rate; swallow between bites,Multiple swallows,Alternate liquids and solids Medication As Tolerated Recommendations Education Patient/Caregiver Described results of evaluation,Patient expressed Education understanding of evaluation,Patient expressed agreement with goals & treatment plans Goals Short-term Goals Patient will complete MBSS to further evaluate swallowing pathophysiology and determine next steps in POC. Long-term Goals Patient will safely tolerate least restrictive diet consistency to allow for safe consumption of daily meals without s/sx of aspiration.
--- NOTE | 2024-08-06 18:27 | ST.OPPOC ---
Physical, Occupational & Speech Therapy At [facility] Visit Care Team Role Provider Type Jesica Arreguin MD Attending Provider Physician Family Provider Primary Care Provider Referring Provider Address: [place], [address] Speech Pathology Plan of Care Plan of Care Dates 08/06/24-11/06/[address] Jesica Arreguin Patient History Antoni Rose is an 79-year-old female, referred for a clinical swallow evaluation by Dr James Arreguin due to concerns regarding aspiration and pulmonary nodules. About a year ago, pt had onset of pneumonia associated with an aspiration event. Chest CT from 05/30/24 showed evidence of multiple small pulmonary nodules. Repeat chest CT from 07/08/24 showed improvement in nodules and a persisting solid nodule in the left lower lobe per pulmonology notes. Pt is followed by records administrator. Pt reported occasional choking sensation with liquids and solids. This occurs inconsistently, a few times a week. Pt expressed ?it feels like something is going down the wrong way?. She stated she occasionally regurgitates bolus. Pt also experiences frequent throat clearing and has a history of GERD and PND. She has had PNA twice in the past year as well as ER visits for diverticulitis, both of which have resolved. Onset of swallowing difficulties about 10 years ago with increase in frequency. Pt denied neurological history other than a concussion about 4 years ago. She reported changes to her voice and stated that she has been mildly hoarse for some time. Functional Oral Intake Scale (FOIS): Level 7 = total oral intake with no restrictions. Pt stated her goal for treatment is ?stop choking and coughing when eating and drinking? and ? avoid another nodule in my lungs.? Short-term Goals Patient will complete MBSS to further evaluate swallowing pathophysiology and determine next steps in POC. Long-term Goals Patient will safely tolerate least restrictive diet consistency to allow for safe consumption of daily meals without s/sx of aspiration. Comment: Electronically Signed by: VIVIANE Scanlon 08/06/24 [id number] If you are in agreement with this Plan of Care, please return a signed and dated copy. I have reviewed this Plan of Care and certify that the skilled therapy services above are required to meet the patient?s needs. Physician Signature Date Printed Name and Credentials Clinical Instructor Signature Printed Name and Credentials
--- NOTE | 2024-08-06 18:31 | ST-OP ANOTE ---
Physical, Occupational & Speech Therapy At [facility] Speech Therapy Note POC sent to PCP, Dr. Jesica Arreguin via [employer], requesting signature if in agreement. Additionally requested order for MBSS. CAN CRIMPER to follow up as needed.
--- NOTE | 2024-08-20 10:32 | ST-OP ANOTE ---
Addendum entered and electronically signed by Morelia Ruth 08/28/24 10:14: METAL CAN INSPECTOR called PCP office again on 08/28/24. MBSS order has been faxed over to [facility] on 08/20 and re-faxed again today. Pt has been notified. METAL CAN INSPECTOR to follow up after MBSS is completed pending results. Original Note: Physical, Occupational & Speech Therapy At [facility] Speech Therapy Note METAL CAN INSPECTOR called PCP office with no reply and no ability to leave voicemail. Fax requesting MBSS order sent via [employer]ax to PCP. METAL CAN INSPECTOR to follow up as needed.
--- NOTE | 2024-10-31 11:45 | ST-OP ANOTE ---
Physical, Occupational & Speech Therapy At [facility] Speech Therapy Note FACING BASTER called pt to follow-up on MBSS recommendation for swallowing treatment. Left voicemail asking pt to call clinic back to schedule treatment sessions or discharge. FACING BASTER to follow up as needed.
--- NOTE | 2024-10-31 17:34 | ST.OPDS ---
Visit Care Team Role Provider Type Jesica Arreguin MD Attending Provider Physician Family Provider Primary Care Provider Referring Provider Address: [place], [address] Pt account discharged. Pt is seeing Pulmonary in Dec/Jan and would like to be seen after that appt. Recommend pt request new referral from PCP when she would like to resume services.
== END 2024-11-06 10:43 | disposition home or self-care (01) ==
LOC: SP 13:56
PROVIDERS: Family Provider Internal Medicine; PCP Internal Medicine; Referring Provider Internal Medicine; Visit Provider Internal Medicine
DX: T17.908D Unspecified foreign body in respiratory tract, part unspecified causing other injury, subsequent encounter (principal)
CPT/HCPCS: 92610

== ENCOUNTER → 2024-09-17 08:50 | Outpatient (CLI) | payer MEDICARE, OTHER, SELFPAY ==
--- NOTE | 2024-09-17 13:03 | ST.SWALLOW ---
Visit Care Team Role Provider Type Jesica Arreguin MD Primary Care Provider Physician Specialty: Internal Medicine Address: [place], [address] Email: Rocio Thompson PA-C Attending Provider Non-Staff Referring Provider Specialty: Medical Address: [address] [place] [address], [address], [place], [address] Email: [email or web address] Modified Barium Swallow Study DIRECTOR PATIENT FINANCIAL SERVICES Modified Barium Swallow Study Start: 09/17/24 10:18 Freq: Status: Active Protocol: Document 09/17/24 10:19 LNK (Rec: 09/17/24 11:39 LNK Desktop) Modified Barium Swallow Study Total Time Visit Start Time 09:00 Visit Stop Time 09:45 Total Visit Minutes [address] Jesica Arreguin, PCP Setting Setting Outpatient Care Patient Information Identification Type Name,Date of Patient History Pt was seen for a Modified Barium Swallow Study at the referral of Dr. Arreguin secondary to concerns regarding aspiration and pulmonary nodules. Pt was seen by ST for a clinical swallow evaluation. Per the ST report, pt had pneumonia associated with an aspiration event. Chest CT from 05/30/24 showed evidence of multiple small pulmonary nodules. Repeat chest CT from 07/08/24 showed improvement in nodules and a persisting solid nodule in the left lower lobe per pulmonology notes. Pt is followed by host/hostess restaurant. Pt reported occasional choking sensation with liquids and solids. She also noted a burning sensation in her mid chest area at timed during the night. She usually takes TUMS and goes back to sleep. She denied any other medications for GERD. Pt reported she was a smoker, but quit 25 years go. When asked if she ever regurgitates undigested foods into her mouth she replied when I eat too much . Subjective Pt was seated in the fluoroscopy chair with directions Observations and procedures described for her. She indicated she understood and agreed to proceed. Patient Positioning Position View Lat-A/P Imaging Lateral View Textures Administered Trials Presented Thin Liquid via Spoon (IDDSI 0),Thin Liquid via Cup ( IDDSI 0),Extremely Thick Liquid via Spoon (IDDSI 4), Soft & Bite-sized (IDDSI,Regular (IDDSI 7) Barium Tablet Yes The IDDSI Framework Protocol: IDDSI.1 Oral Impairment Source: The Modified Barium Swallow Impairment Profile (MBSImP??) Lip Closure No labial escape Tongue Control Cohesive bolus between tongue to palatal seal During Bolus Hold Bolus Preparation/ Timely & efficient chewing & mashing Mastication Bolus Transport/ Brisk tongue motion Lingual Motion Oral Residue Trace residue lining oral structures Location Tongue Initiation of Bolus head at posterior laryngeal surface of epiglottis Pharyngeal Swallow Additional Oral Oral phase of swallow observed to be WNL Impairment *OME and DKS were observed to be WNL. Observations *Dentition natural and in good hygiene *Mastication observed with rotary chew pattern. *Good bolus formation, control and AP transition. *Velopharyngeal closure was WNL. Pharyngeal Impairment Source: The Modified Barium Swallow Impairment Profile (MBSImP??) Soft Palate No bolus between soft palate & pharyngeal wall Elevation Laryngeal Elevation Comp.sup.move.thyroid cart.w/comp.approx.arytenoids to epiglot petiole Anterior Hyoid Complete anterior movement Excursion Epiglottic Movement Complete inversion Laryngeal Vestibular Complete; no air/contrast in laryngeal vestibule Closure Pharyngeal Stripping Present - complete Wave Pharyngoesophageal Complete distention & complete duration; no obstruction Segment Opening of flow Tongue Base Narrow column of contrast/air betwn tongue base & post. Retraction pharyngeal wall Pharyngeal Residue Collection of residue within/on pharyngeal structures Location Diffuse (>3 areas) Additional Pharyngeal phase of swallow observed to be WFL with the Pharyngeal following observations: Impairment Mild base of tongue retraction strength Observations Pharyngeal pooling consistent across all trials - cleared with subsequent spontaneous swallows Pt was able to safely protect airway across all trials - flash penetration noted x1 during consecutive swallows without residue No overt laryngeal penetration No overt tracheal aspiration A/P View Textures Administered Trials Presented Thin Liquid via Spoon (IDDSI 0),Mildly Thick Liquid via Straw (IDDSI 2) The IDDSI Framework Protocol: IDDSI.1 A/P View Observations Esophageal Clearance Esophageal retention w/retrograde flow below Upright Position pharyngoesoph segment Esophageal Function Slowed Clearing,Poor Motility,Reverse Peristalsis, Stasis,Narrowing Additional A-P Initially when pt position changed from lateral to AP, Observations esophageal retention of semi-solid and cookie trials remained in the esophagus from UES to LES. Three plus water swallows partially cleared the esophagus. Retroflow of esophageal contents to the UES was also observed following water wash to clear esophagus. Liquid barium and barium tablet cleared esophagus as expected. During the AP trials, the pt expressed discomfort near her sternal notch area. Clinical Impressions Dysphagia Type Esophageal Findings Pt presented with oral and pharyngeal phases WNL/WFL Esophageal retention of solid/semi-solid/bite sized trials was observed from UES to LES. Narrowing/tortuous esophagus was noted in the lower third, prior to the LES . Swallows of water were partially effective in clearing the esophageal contents; however, with water, retroflow of the esophageal contents was observed to the UES, causing the pt to cough. Given the above observations it is likely that, as the pt is eating, her esophagus is filling with solids and a stacking effect occurs due to significant dysmotility. As this continues during meal, the esophagus becomes full and there is regurgitation into the pharyngoesophageal area causing the pt to cough and/or aspirate. Additionally, as the pt sleeps flat, her esophagus may continue to have retained foods. This may lead to silent aspiration in a flat sleeping position. The results and recommendations of the MBSS were described to the pt while observing still pictures taken during the MBSS. Pt was encouraged to use a wedge at the head of her bed or raise he head of her bed to allow for a gravity assist in esophageal clearing . Also, it was recommended that the pt alternate fluids with solids during meals to prevent/reduce stacking of solid foods .Pt expressed appreciation and indicated she understood. All pt questions were addressed. Rehabilitation Excellent Potential Patient Appropriate Yes: Base of tongue; esophageal strategies to clear for Therapy contents Recommendations Diet Comments no change in diet recommended Aspiration Precautions Recommended Upright at 90 Degrees,Alternate Liquids/Solids,Frequent Precautions Rest Periods Treatment Plan Therapy Outpatient Speech Therapy Recommendations Additional GI consult as indicate per pt and MD discussion Recommended Referrals
== END ==
LOC: RAD 08:50
PROVIDERS: PCP Internal Medicine; Referring Provider Physician Assistant; Visit Provider Physician Assistant
DX: R13.10 Dysphagia, unspecified (principal); T17.908D Unspecified foreign body in respiratory tract, part unspecified causing other injury, subsequent encounter
CPT/HCPCS: 74230; 92611

== ENCOUNTER → 2025-01-07 09:06 | Outpatient (CLI) | payer MEDICARE, OTHER, SELFPAY ==
--- NOTE | 2025-01-07 09:08 | DI.CT.S_ITS ---
PROCEDURE: CT CHEST WO CON INDICATIONS: Folow up on LLL nodule. TECHNIQUE: Noncontrast 2.0-2.5 mm thick sections acquired from the pulmonary apices to the posterior costophrenic angles. 7 mm thick axial MIP and 5 mm coronal and sagittal reformats were then acquired. For radiation dose reduction, the following was used: automated exposure control, adjustment of mA and/or kV according to patient size. COMPARISON: [facility], CT, CT CHEST WO CON, 07/08/2024, 8:21. FINDINGS: Image quality: Excellent. Some images are limited by beam hardening artifacts or other artifacts. Waxing and waning nodules are again noted. The previously measured nodule in the left lower lobe posterior basal (series 3, image 208) now measures approximately 4 mm previously measured 8 x 5 mm. Numerous other scattered tree-in-bud parotid dominantly peripheral nodules are again noted with some increase in the right middle lobe inferiorly with age new or increased subsolid nodule (series 3, image 188) measuring up to approximately 8 mm transverse by 7 mm AP. Scattered anterior tracheal, paratracheal, subcarinal and hilar lymph nodes some partially calcified commonly reactive/inflammatory or related to granulomatous disease stage indeterminate similar to the prior exam the largest low anterior tracheal measuring up to 9 mm [id number] calcifications of the left anterior descending coronary artery unchanged. Mild bilateral peribronchial thickening unchanged. Moderate degenerative changes of the thoracic spine unchanged. No pneumothorax, no pleural effusion, no pericardial effusion, no lobar consolidation. Lower Neck: No enlarged lymph nodes. Thyroid: No thyroid nodules which require sonographic follow up, per consensus guidelines. Axillae: No enlarged lymph nodes. Chest Wall: Unremarkable. Heart: Heart size is normal. Thoracic Vessels: The aorta and pulmonary arteries demonstrate normal size. Esophagus: No wall thickening. No hiatal hernia. Upper Abdomen: Visualized upper abdomen solid organs and bowel loops appear normal. IMPRESSION: Multiple laxity in weaning tree in bud and subsolid nodules as discussed above may be related to recurrent aspiration, gastroesophageal reflux, granulomatous disease or other process. Continued follow-up suggested. Fleischner Society criteria for SOLID lung nodule followup. Nodule size (mm)Low-risk patientHigh-risk patient<6 (single or multiple)No routine followup.Optional CT at 12 months. 6-8 (single or multiple)CT at 6-12 months, then optional CT at 18-24 mo.CT at 6-12 months, then CT at 18-24 months. >8 (single)CT at 3 months, PET-CT, or biopsy. Same as for low-risk pts. >8 (multiple)CT at 3-6 months, then optional CT at 18-24 mo.CT at 3-6 months, then CT at 18-24 months. Fleischner Society criteria for SUB-SOLID lung nodule followup. Solitary pure ground-glass nodules<6 mm (ground glass or part solid)No followup needed. 6 mm or larger (ground glass)CT at 6-12 months to confirm persistence, then CT every 2 years until 5 years.6 mm or larger (part solid)CT at 3-6 months to confirm persistence, then annual CT until 5 years if unchanged and solid component remains <6 mm. Multiple sub-solid nodules<6 mmCT at 3-6 months, then CT consider at 2 & 4 years for high risk patients. [address] at 3-6 months. Subsequent management based on most suspicious lesions. Recommendations do not apply to lung cancer screening, patients with immunosuppression, or patients with known primary cancer. Dictated by: Shawn Quintero M.D. on 01/07/2025 at 9:45 Approved by: Shawn Quintero M.D. on 01/07/2025 at 10:04
== END ==
LOC: CT 09:07
PROVIDERS: PCP Internal Medicine; Referring Provider Student in an Organized Health Care Education/Training Program; Visit Provider Student in an Organized Health Care Education/Training Program
DX: R91.8 Other nonspecific abnormal finding of lung field (principal); I25.10 Atherosclerotic heart disease of native coronary artery without angina pectoris; M47.814 Spondylosis without myelopathy or radiculopathy, thoracic region
CPT/HCPCS: 71250